=== PATIENT | female | born 1940 | race Caucasian/White ===

== ENCOUNTER 2019-12-22 11:15 | Emergency (ER) | payer MEDICARE, SELFPAY ==
[2019-12-22 11:32] VITALS: BP 87/52; PULSE 98; RESP 20; TEMP 35.9; O2SAT 97
--- NOTE | 2019-12-22 11:46 | ED.GENADULT ---
HPI - General Adult General Chief complaint: Upper Respiratory Infection Stated complaint: SOB Source: patient Mode of arrival: ambulatory Limitations: no limitations History of Present Illness HPI narrative: 79 y/o female. PMH includes: HTN, HLD, DM II. Presents to [facility] clinic today with acute complaints of worsening generalized weakness, dyspnea, loose stool, and 'fatigue' for past 4-5 days. Client notes to feel awful . No chest pain, N/V. Does report loss of appetite and not eating. She reports to have a few family members whom have recently tested positive for Covid 19 virus, but states she herself tested negative 2 weeks ago . She arrives alert and ambulatory, but pale, weak, with noted tachycardia and to be hypotensive. She is a patient of Dr. Moyer Kevin [facility]. Related Data Home Medications Medication Instructions Recorded Confirmed albuterol sulfate [ProAir HFA] INHALATION 12/22/19 fluticasone propionate INTRANASAL 12/22/19 hydrochlorothiazide 12/22/19 lisinopril 12/22/19 metformin mg PO 12/22/19 pioglitazone mg 12/22/19 simvastatin mg 12/22/19 Allergies Allergy/AdvReac Type Severity Reaction Status Date / Time No Known Allergies Allergy Verified 12/22/19 11:30 Review of Systems Review of Systems: Narrative: CONSTITUTIONAL: Denies fever, chills, sweats. EYES: Denies visual changes, redness, discharge. ENT: Denies rhinorrhea, congestion, sore throat, otalgia. CARDIOVASCULAR: Denies chest pain, palpitations, edema. RESPIRATORY: Dyspnea. GASTROINTESTINAL: Loss of appetite. Loose stool. Denies abdominal pain, nausea, vomiting. Denies hematochezia. GENITOURINARY: Denies dysuria, hematuria, abnormal discharge SKIN: Denies rash or itching. MUSCULOSKELETAL: Denies acute back pain, joint pain, or myalgia. NEUROLOGIC: Generalized weakness. Denies numbness, or focal weakness. PSYCHIATRIC: Denies anxiety or depression. Exam Narrative: Exam Narrative: Some components of the exam have not been completed due to need for transfer to acute care facility, higher level of care. GENERAL: This is a frail elderly lady who appears to be ill. HEAD: normocephalic, atraumatic. CARDIOVASCULAR: Tachycardia, without murmurs, gallops, or rubs. RESPIRATORY: LS diminished. GASTROINTESTINAL: Abdomen soft, non-tender, nondistended. No guarding. SKIN: warm, intact with no suspicious lesions or rash, good texture and turgor. NEURO: There were no obvious focal neurologic abnormalities. Generalized weakness. Frail. Course Vital Signs Vital signs: Vital Signs Temperature 35.9 C L 12/22/19 11:32 Pulse Rate 98 12/22/19 11:32 Respiratory Rate 20 12/22/19 11:32 Blood Pressure 87/52 L 12/22/19 11:32 Pulse Oximetry 97 12/22/19 11:32 Temperature 35.9 C L 12/22/19 11:32 Pulse Rate 98 12/22/19 11:32 Respiratory Rate 20 12/22/19 11:32 Blood Pressure 87/52 L 12/22/19 11:32 Pulse Oximetry 97 12/22/19 11:32 Transfer Transfered to: [facility] Transportation: ALS Transfer rationale: This patient requires resources not immediately available at the urgent care. Higher level of care. Accepting physician: Dr. Granger at 1155. Transfer comments: [facility]. Report has been provided to accepting facility and physicians. Staff at accepting facility have been notified of potential PUI for Covid 19, and this patient has been handled with all precautions considering. Medical Decision Making Medical Records Medical records reviewed: Yes I reviewed the patient's medical records. Vital Signs Vital Signs: Vital Signs Temperature 35.9 C L 12/22/19 11:32 Pulse Rate 98 12/22/19 11:32 Respiratory Rate 20 12/22/19 11:32 Blood Pressure 87/52 L 12/22/19 11:32 Pulse Oximetry 97 12/22/19 11:32 Temperature 35.9 C L 12/22/19 11:32 Pulse Rate 98 12/22/19 11:32 Respiratory Rate 20 12/22/19 11:32 Blood Pressure 87/52 L 12/22/19 11:32 Pulse Oximetry
--- NOTE | 2019-12-22 12:23 | PC.NURSE ---
IV inserted x1 attempt without difficulty. Vital signs reassessed. 95/51 91 16 97%. EMS to transfer patient to [facility]. Patient alert and stable for transport.
== END 2019-12-22 12:16 | disposition short-term general hospital (02) ==
PROVIDERS: Emergency Provider Nurse Practitioner Adult Health; PCP Internal Medicine
DX: Z20.828 Contact with and (suspected) exposure to other viral communicable diseases (principal); I95.9 Hypotension, unspecified; R53.1 Weakness; R00.0 Tachycardia, unspecified; R06.00 Dyspnea, unspecified; I10 Essential (primary) hypertension; E78.5 Hyperlipidemia, unspecified; E11.9 Type 2 diabetes mellitus without complications
CPT/HCPCS: 99215; G0463

== ENCOUNTER 2022-02-27 11:21 | Outpatient (CLI) | payer MEDICARE, SELFPAY ==
--- NOTE | ~2022-02-27 | US_ITS ---
EXAMINATION: US carotid duplex BI DATE: 02/27/2022 12:27 INDICATION: Bilateral carotid artery stenosis TECHNIQUE: Grayscale, color Doppler, and pulsed Doppler images of the cervical carotid arteries were obtained. The degree of vessel stenosis is placed in one of the following categories: normal, <50%, 5 0-69%, >=70% but less than near-occlusion, near-occlusion, or total occlusion. Note that percent sten osis relative to normal distal artery lumen diameter is indirectly measured from velocity measurement s as described by Cole, et al. Radiology 2003; 229:340-346. COMPARISON: None. FINDINGS: RIGHT: The right common carotid artery (CCA) peak systolic velocity (PSV) is 94 cm/s. The right internal car otid artery (ICA) PSV is 97 cm/s. The right ICA end-diastolic velocity (EDV) is 15 cm/s. The right IC A/CCA PSV ratio is 1.0. Grayscale and color Doppler images yield an estimate of <50% diameter reducti on from plaque in the ICA. The external carotid artery (ECA) PSV is 106 cm/s. There is antegrade flow in the right vertebral artery. LEFT: The left CCA PSV is 116 cm/s. The left ICA PSV is 83 cm/s. The left ICA EDV is 23 cm/s. The left ICA/ CCA PSV ratio is 0.7. Grayscale and color Doppler images yield an estimate of <50% diameter reduction from plaque in the ICA. The ECA PSV is 83 cm/s. There is antegrade flow in the left vertebral artery . IMPRESSION: 1. <50% stenosis in the right internal carotid artery. 2. <50% stenosis in the left internal carotid artery. Reviewed, dictated and finalized at location A. L MAKING SUPERVISOR
== END 2022-02-27 11:22 | disposition home or self-care (01) ==
PROVIDERS: PCP Family Medicine; Visit Provider Internal Medicine Cardiovascular Disease
DX: I65.23 Occlusion and stenosis of bilateral carotid arteries (principal)
CPT/HCPCS: 93880

== ENCOUNTER 2024-09-19 19:32 | Emergency (ER) | payer MEDICARE, BC, SELFPAY ==
--- NOTE | ~2024-09-19 | XR_ITS ---
EXAM: XR shoulder RT 1V DATE: 09/19/2024 20:41 HISTORY: per ortho request/ [facility] . COMPARISON: Same date at 7:56 PM. FINDINGS/IMPRESSION: Redemonstration of the comminuted right humeral head fracture. A fragment comprising the greater tube rosity remains posteriorly displaced. Alignment unchanged. Normal glenohumeral alignment, with possible mild subluxation. No glenoid fracture. Reviewed, dictated and finalized at location K.
--- NOTE | ~2024-09-19 | XR_ITS ---
EXAM: XR shoulder RT min 2V DATE: 09/19/2024 20:15 HISTORY: fall, pain . COMPARISON: None available. FINDINGS: Limited evaluation with only 2 views. Normal mineralization. Comminuted right humeral head fracture with involvement of the greater tuberosity. The greater tuberosity fragment is displaced pos teriorly by 9 mm. No lytic or blastic lesion. Moderate AC joint and glenohumeral joint degenerative c hange. No erosion or periosteal change. Soft tissues within normal limits. IMPRESSION: Comminuted right humeral head fracture. Reviewed, dictated and finalized at location K.
[2024-09-19 19:31] VITALS: BP 145/90; PULSE 80; RESP 18; TEMP 36.7; O2SAT 100
--- NOTE | 2024-09-19 19:40 | ED_ITS ---
HPI - Fall General Chief Complaint: Fall Stated Complaint: RUE PAIN S/P FALL Time Seen by Provider: 09/19/24 19:35 History of Present Illness HPI Narrative: Patient presents here after she missed reaching for a door knob, slipped and fell down some steps, landing on her right arm. She is reporting pain with trying to move it Related Data Home Medications ?Medication ?Instructions ?Recorded ?Confirmed ?Last Taken ?Type omega 8-uzm-hcb-fish oil 100 cap PO 02/20/22 08/25/24 Unknown History mg-160 mg-1,000 mg capsule (Fish Oil) pioglitazone 15 mg tablet (Actos) 15 mg PO DAILY 02/20/22 08/25/24 Unknown History vitamin B complex (B 1 tablet PO DAILY 02/20/22 08/25/24 Unknown History Complex-Vitamin B12 tablet) atorvastatin 10 mg tablet (Lipitor) 40 mg PO DAILY 08/29/22 08/25/24 Unknown History aspirin 81 mg tablet 81 mg PO DAILY 08/20/23 08/25/24 Unknown History cholecalciferol (vitamin D3) 1,250 1,250 mcg PO WEEKLY 08/20/23 08/25/24 Unknown History mcg (50,000 unit) capsule multivitamin 1 tablet PO DAILY 08/20/23 08/25/24 Unknown History furosemide 20 mg tablet (Lasix) 40 mg PO .PRN 12/24/23 08/25/24 Unknown History semaglutide 1 mg/dose (4 mg/3 mL) mg subcut 04/21/24 08/25/24 Unknown History subcutaneous pen injector (Ozempic) Allergies Allergy/AdvReac Type Severity Reaction Status Date / Time No Known Allergies Allergy Verified 08/25/24 13:46 Review of Systems Review of Systems: All systems reviewed & are unremarkable except as noted in HPI and below PMFSH Past Medical History Medical History Diabetes History of chronic arthritis Family History Family History Father Diabetes mellitus Hypertension Mother Acute leukemia Sibling Diabetes mellitus Heart disease Cerebrovascular accident Social History Social History Smoking status: Former smoker Smoking end date: 02/19/92 Alcohol intake: current Alcohol use details: infrequently Substance use: never Do You Feel Safe in your Home?: Yes Lack of Transportation: No Lack of Food: Never True Current Housing: I Have Housing Concerned About Future Housing: No Difficulty Paying Gas/Electric Bills: No Difficulty Paying for Meds: No Currently Unemployed: No Education: Master's Degree or Higher Difficulty w/ Childcare or Family Care: No Occupation/Education: retired Gender identity (if verbalized by the patient): Female Exam Narrative: EXAMINATION OF ORGAN SYSTEMS/BODY AREAS: Constitutional: Vital signs per nursing GENERAL:[No acute distress, non-toxic appearing.] HEAD: Normal with no signs of head trauma. EYES: EOMI, conjunctiva normal ENT: Hearing grossly intact LUNGS: Nonlabored breathing. HEART: [Regular rate and rhythm] ABD: [Soft], [nontender to palpation] EXT: RUE in sling; some tenderness to humerus; no tenderness to wrist, elbow. Bruising to R 2nd/3rd digits but normal ROM SKIN: Bruises to digits as above NEURO: [Alert and oriented x 3. No gross focal sensory or strength deficits.] PSYCH: Normal affect Course Vital Signs Vital signs: Vital Signs Temperature 98.1 F 09/19/24 19:31 Pulse Rate 80 09/19/24 19:31 Respiratory Rate 18 09/19/24 19:31 Blood Pressure 145/90 H 09/19/24 19:31 Pulse Oximetry 100 09/19/24 19:31 Oxygen Delivery Room Air 09/19/24 19:31 Temperature 98.1 F 09/19/24 19:31 Pulse Rate 80 09/19/24 19:31 Respiratory Rate 18 09/19/24 19:31 Blood Pressure 145/90 H 09/19/24 19:31 Pulse Oximetry 100 09/19/24 19:31 Oxygen Delivery Room Air 09/19/24 19:31 MDM - Fall MDM Narrative Medical decision making narrative: Patient presents here after mechanical fall she did not hit her head, she has no injuries anywhere else and she is ambulating without issue, she is reporting pain to her right upper extremity, on exam she has no tenderness to anywhere else other than her right humerus. Normal strong radial pulse. X-ray unfortunately on my independent interpretation does show a humeral head fracture. Discussed with orthopedics Dr. Dwyer, who requests additional view as well as shoulder immobilizer, will follow up with her in clinic, patient updated, agreeable to plan, pain prescriptions provided. Discharge Plan Discharge Clinical Impression: Humeral fracture Patient Disposition: Home Condition: Stable Instructions: Proximal Humerus Fracture (ED) Additional Instructions: Please follow-up with the orthopedist, keep her arm in the sling, you can take the medications as prescribed for pain, and use ice for the 1st few days. You can always return to the emergency room for any further issues. Patient Language: Tajik Prescriptions: New acetaminophen [Tylenol Extra Strength] 500 mg tablet 1,000 mg PO Q6H PRN (Reason: pain) Qty: 50 0RF methocarbamol 750 mg tablet 750 mg PO TID PRN (Reason: muscle spasm) Qty: 30 0RF oxycodone 5 mg capsule 5 mg PO Q8H PRN (Reason: pain) Qty: 14 0RF No Action pioglitazone [Actos] 15 mg tablet 15 mg PO DAILY Fish Oil 100-160-1,000 mg capsule PO vitamin B complex [B Complex-Vitamin B12] Tablet 1 tablet PO DAILY Ozempic 1 mg/dose (4 mg/3 mL) pen injector subcut aspirin 81 mg tablet 81 mg PO DAILY multivitamin Tablet 1 tablet PO DAILY cholecalciferol (vitamin D3) 1,250 mcg (50,000 unit) capsule 1,250 mcg PO WEEKLY atorvastatin [Lipitor] 10 mg tablet 40 mg PO DAILY furosemide [Lasix] 20 mg tablet 40 mg PO .PRN Follow-up/Referrals: Zoltan Dwyer MD [Physician] - 2 Days Harms,Paul Elias M.D. [Primary Care Provider] -
--- NOTE | 2024-09-19 20:02 | PC.NURSE ---
This RN spoke with Bhargavi FERNANDEZ from [facility] and updated about pt POC
--- OUTSIDE RECORDS SUMMARY | 2024-09-19 20:47 | XMS_ITS | Clinical Summary ---
Author Organization [facility] Address [address] [place] [id number] Phone Care Team Providers Care Hand Tool Filer Name Role Phone Paul Chavez MD Primary Care Provider [phone] Allergies No known active allergies Medications aspirin (ST JOSE FRANCISCO) 81 MG EC tablet 81 mg 0 Active cyanocobalamin (VITAMIN B-12) 1000 MCG tablet Take 1,000 mcg by mouth Active fluticasone (VERAMYST) 27.5 MCG/SPRAY nasal spray Administer 1 spray into affected nostril(s) Active furosemide (LASIX) 20 MG tablet Take 20 mg by mouth 1 Active Icosapent Ethyl 1 g capsule 1 Active Multiple Vitamin (multivitamin) tablet Take 1 tablet by mouth Active [place] 3 1000 MG capsule Take 2 g by mouth daily Active pioglitazone (ACTOS) 45 MG tablet 1 Active Cholecalciferol 50 MCG (2000 UT) capsule Take 2,000 Units by mouth daily 1 Active atorvastatin (LIPITOR) 40 MG tablet 2 Active Dulaglutide (Trulicity) 1.5 MG/0.5ML solution pen-injector Inject 1.5 mg under the skin 2 Active erythromycin (ROMYCIN) 5 MG/GM ophthalmic ointment APPLY A SMALL AMOUNT TO EYE LID THREE TIMES DAILY FOR 10 DAYS STARTING AFTER SURGERY 2 Active Active Problems Problem Noted Date Diagnosed Date Cough 06/19/2021 Overview (10/09/2021): Last Assessment & Plan: Cough for 9 days draggoy sleeps a lot tired no fever no chills no sinus isues Non productive sugar alos high check a cxr and start empirec ztirho for thois Excessive intake of vitamin B12 and vitamin B12 derivative 06/19/2021 Overview (10/09/2021): Last Assessment & Plan: Stop for june and restart July If takes 2500 then go to 1000 a day and if 1000 then restart 500 and Skip sat ad nsund. And recheck And comen inwith dose taking Chronic kidney disease stage 4 08/31/2020 Hyperkalemia 08/31/2020 Vitamin D deficiency 08/31/2020 Obesity 05/04/2020 Overview (04/02/2021): Last Assessment & Plan: Work to keep wt stable to drop Last Assessment & Plan: Work to dorp -wt Generalized edema 02/03/2020 Overview (04/02/2021): Last Assessment & Plan: suporot hose on dfirst in am. Consider referal to edema clinic on return Last Assessment & Plan: suporot hose on dfirst in am. Consider referal to edema clinic on return Hypercalcemia 12/31/2019 Overview (04/02/2021): Last Assessment & Plan: Resolved and montior Last Assessment & Plan: Resolved and montior Orthostatic hypotension 12/31/2019 Overview (04/02/2021): Last Assessment & Plan: Not on much meds but stopoing the lisinopri and off h ctzx already Pushing salts and flulids in general stopoing merformin and victoza and simbvastatin Pain of left hip joint 04/27/2019 Overview (04/02/2021): Last Assessment & Plan: Referral to ortho for eval Postmenopausal state 04/27/2019 Overview (04/02/2021): Check bmd Last Assessment & Plan: Check bmd At moderate risk for fall 10/27/2018 Overview (04/02/2021): Last Assessment & Plan: Urged to get out daily aldn use the carts for stabilitly to bulid up gait and strength Impaired joint position sense 10/27/2018 Overview (04/02/2021): Last Assessment & Plan: Balance worse from this and need to work o balance to prevednt faling. Dyspnea on exertion 01/20/2018 Overview (04/02/2021): Last Assessment & Plan: Patient underwent stress exercise echo that was unremarkable but was sub maximal. I asked the patient to use her treadmill at home and gradually exercise. Asked patient to let me know if she experiences any chest pain. Last Assessment & Plan: Patient underwent stress exercise echo that was unremarkable but was sub maximal. I asked the patient to use her treadmill at home and gradually exercise. Asked patient to let me know if she experiences any chest pain. Palpitations 01/20/2018 Overview (04/02/2021): Last Assessment & Plan: Holter monitor shows supraventricular contractions with no atrial fibrillation. Patient now is asymptomatic. Chronic low back pain 10/07/2017 Overview (04/02/2021): Last Assessment & Plan: Look at trial pt once card workup done Acute back pain with sciatica 01/14/2017 Overview (04/02/2021): Last Assessment & Plan: Some what better but stil issue referal to pt given apparent muslce c.o and worked in past if not then refereral to pain md. Not andidate for stgeroid given high surg/d.,. and nsaid's risk more then worth. otc helps Last Assessment & Plan: Some what better but stil issue referal to pt given apparent muslce c.o and worked in past if not then refereral to pain md. Not andidate for stgeroid given high surg/d.,. and nsaid's risk more then worth. otc helps Acute cystitis without hematuria 09/10/2016 Overview (04/02/2021): Last Assessment & Plan: Urine culture + and will retreat and check urine 2-4 days off antibiotics to confirm clear. Would like to ait for sensitivityi to come back Last Assessment & Plan: Urine culture + and will retreat and check urine 2-4 days off antibiotics to confirm clear. Would like to ait for sensitivityi to come back Type 2 diabetes mellitus 07/04/2013 Overview (04/02/2021): Last Assessment & Plan: ldl at 96 andwant tighter and target 60 On 20 simvastin and will go to 20 atorvasitn and should g et ldl lower an adjust. Your cholesterol in the form of ldl (bad) cholesterol,hdl(good) cholesterol and triglycerides are monitored. The triglycerides respond to reduction/controll of your simple carbs/sugars In such items as sugared soda/sweet tea along with fruit juices(containing natural sugar) even if no added sugar is added. LDL cholesterol is reduced with reducing daily intake of fats and ghada. saturated fats. The monosaturated fats like olive oil are not harmful except in the calories they contained. Whole milk cheese needs to be remembered along with whole milk products And limited. Last Assessment & Plan: ldl at 67 and great and Keep meds sameYour cholesterol in the form of ldl (bad) cholesterol,hdl(good) cholesterol and triglycerides are monitored. The triglycerides respond to reduction/controll of your simple carbs/sugars In such items as sugared soda/sweet tea along with fruit juices(containing natural sugar) even if no added sugar is added. LDL cholesterol is reduced with reducing daily intake of fats and ghada. saturated fats. The monosaturated fats like olive oil are not harmful except in the calories they contained. Whole milk cheese needs to be remembered along with whole milk products And limited.Diabetes management or controll revolves around several core concepts : weight controll,controlling the intake of rapidly absorbed sugars(read simple carbs that get rapidly absorbed such as sweetened tea,sugared soda,fruit juices or portions of fruit over 1/2 cup at a time) as well at the need to increase the sugar burned up through an n increase in your baseline activity.Breads,potatotes(white,yellow,sweet are all the same),most cereals and noodles all breakdown to sugar rapidly. This rapid breakdown or absorption challenges the body into handling this surge of sugar. The more these factors are controlled the more the sugar will be controlled. DMII WO CMP NT ST UNCNTR Last Assessment & Plan: Creat inching down to 2.1 and impoved and keep meds sames. To try to minimize the worsening and possible improvement in the renal function there are several things to try to do. The patient should work to get off of (if on) drugs Like Prilosec/prevacid/protonix/nexium,etc. This does not include zantac/pepcid or Tagement. It ws shown that there is an increased risk of kidney dysfunction if you use Prilosec like meds.The patient should also stay off of regular use of scripted arthritis pills like Celebrex.mobic,naprosyn,etc. The over the counter pills of this nature are Advil/motrin/ibuprofen and aleve/naproxen. Regular use of these over the counter pills, Particularly at high doses and not scattered use of the meds also can harm the kidneys. Last Assessment & Plan: The patient was counseled on a heart-healthy, diabetic-friendly diet, as well as life-style modification. Education provided on the diagnosis and risks of the disease. We will continue to monitor routine labs. Additionally, She was counseled on routine diabetic eye exams, foot exams, and other preventive care. Hypertensive disorder 07/04/2013 Overview (10/09/2021): BENIGN HYPERTENSION Last Assessment & Plan: The bp dropped with wt and not usig lasix and a1c high at 11.9 and higher Switch to trulixity 1.5 and o6ofsfks and then go to 3 next Hypertension, Medical treament revolves around weight control, salt management, and meds when necessary. long as weight loss is necessary and you are able to drop weight we can cont to monitor the blood pressure and not add meds. Once the weight is not changing then it becomes nesessary to add meds to be able to reach the goal bp.Diabetes management or controll revolves around several core concepts : weight controll,controlling the intake of rapidly absorbed sugars(read simple carbs that get rapidly absorbed such as sweetened tea,sugared soda,fruit juices or portions of fruit over 1/2 cup at a time) as well at the need to increase the sugar burned up through an n increase in your baseline activity.Breads,potatotes(white,yellow,sweet are all the same),most cereals and noodles all breakdown to sugar rapidly. This rapid breakdown or absorption challenges the body into handling this surge of sugar. The more these factors are controlled the more the sugar will be controlled. Immunizations Immunization Administration Dates Next Due Influenza LAIV (Nasal) 01/06/2020 Influenza Split 01/15/2011,12/26/2009 Influenza Split High Dose Pr eservative Free IM 01/06/2020,01/19/2019,11/21/2017,11/20,03/14/2015,01/04/2014,01/12/2013 Influenza TIV (IM) 02/26/2012,01/06/2008 Influenza, Injectable, Quadrivalent 12/13/2020 Influenza, Quadrivalent 01/06/2020 Pfizer Sars-cov-2 Vaccination 05/03/2020, 021 Pneumococcal Conjugate 13-Valent 05/10/2014 Pneumococcal Polysaccharide 02/03/2020, 8 Tdap 05/18/2016 Family History Medical History Relation Comments Dementia Brother Diabetes mellitus Brother Diabetes mellitus Father Heart disease Father Hypertension Father Stroke Father Colon cancer Mother Relation Status Comments Brother Father Mother Social History Tobacco Use Types Packs/Day Years Used Date Smoking Tobacco: Former Smokeless Tobacco: Never Alcohol Use Standard Drinks/Week Comments Yes 0 (1 standard drink = 0.6 oz pur e alcohol) social use Comments Unknown Sex and Gender Information Value Date Recorded Sex Assigned at Female 05/29/2021 4:44 PM MDT Legal Sex Female 10:37 AM [facility] Gender Identity Female 05/29/2021 4:44 PM MDT Sexual Orientation Straight 05/29/2021 4: 44 PM MDT Last Filed Vital Signs Vital Sign Reading Time Taken Comments Blood Pressure 136/78 10/09/2021 2:49 PM CDT Pulse - - Temperature 35.8 C (96.4 F) 10/09/2021 2:49 PM CDT Respiratory Rate 18 10/09/2021 2:49 PM CDT Oxygen Saturation - - Inhaled Oxygen Concentration - - Weight 108 kg (237 lb) 10/09/2021 2:49 PM CDT Height 170.2 cm (5' 7) 10/09/2021 2:49 PM CDT Body Mass Index 37.12 10/09/2021 2:49 PM CDT Plan of Treatment Health Maintenance Due Date Last Done Comments COVID-19 Vaccine (2023-2 5 season) 2023 05/03/2020, 04/12/2020 Influenza Vaccine (#1) 2024 , 02/26/2012, 01/15/2011, Additional history exists Pneumococcal PPSV23/PCV13 65 + Years / Low and Medium Risk Completed 02/03/2020, 05/10/2014, 01/06/[address] [facility] [employer] MEDICARE Care Teams Hand Tool Filer Relationship Specialty Start Date End [place] [phone] PCP - General Internal Medicine 10/09/21
--- OUTSIDE RECORDS SUMMARY | 2024-09-19 20:47 | XMS_ITS | Referral Summary ---
Author Organization [facility] Address [address] [place] [id number] Care Team Providers Care Roving Tester Laboratory Name Role Phone Herbert Parker MD Unavailable [phone] Artie Nayak MD Unavailable [phone] Mary Ann Santizo MD Unavailable [phone] Laura Crump MD Unavailable [phone] Paul Chavez MD Primary Care Provider [phone] Tonya Patel MD Unavailable [phone] Encounters Date Type Department Care Team Description 09/10/2024 Orders Only [facility] [address] [address] ProviderRichard MD 08/13/2024 8:44 AM CDT - 08/13/2024 11:59 PM CDT Hospital Encounter [facility] Medical [facility] and Sports Medicine [address] [place] [address] [place] [phone] Discharge Disposition: Discharge to home or self care 08/13/2024 7:34 AM CDT - 08/13/2024 11:59 PM CDT Hospital Encounter [facility] Medical [facility] Orthopedics and Sports Medicine [address] [place] [address] [address], [place] [phone] Discharge Disposition: Discharge to home or self care 08/13/2024 8:00 AM CDT Office Visit [facility] Medical [facility] Orthopedics and Sports Medicine [address] [place] [address] [address] [place] [phone] Emmie López PA Right hip pain (Primary Dx) 07/27/2024 5:00 PM CDT Office Visit [facility] [address] [address] Terri Velez NP Acute cough (Primary Dx) 07/08/2024 Telephone [facility] [address] [facility] [address], [place] [address] Ajay Molina MD from Last 3 Months Allergies No known active allergies Medications lancets misc Check sugar once a day 100 each 11 9 Active blood glucose diagnostic (ONETOUCH ULTRA TEST) strip Check sugar once a day 100 each 9 Active cholecalciferol (VITAMIN D-3) 2000 unit capsule Take 0.5 capsules (1,000 Units total) by mouth daily 1 Active multivitamin capsule Take 1 capsule by mouth daily Active cyanocobalamin (Vitamin B-12) 1,000 mcg tablet Take 1 tablet (1,000 mcg total) by mouth Active fluticasone propionate (FLONASE) 50 mcg/actuation nasal spray Administer 1 spray into each nostril as needed for rhinitis or allergies Active furosemide (LASIX) 40 mg tablet Take 1 tablet (40 mg total) by mouth as needed (swelling) 90 tablet 3 3 Active aspirin 81 mg enteric coated tablet Take 1 tablet (81 mg total) by mouth daily Active icosapent ethyL (VASCEPA) 1 gram capsuleIndications :Type 2 diabetes mellitus with hyperlipidemia (HCC) TAKE 2 CAPSULES TWICE A DAY 360 capsule 3 4 Active semaglutide (OZEMPIC) 1 mg/dose (4 mg/3 mL) pen injector injectionIndicatio ns:type 2 diabetes mellitus Inject 1 mg under the skin every 7 days 9 mL 3 5 Active glipiZIDE (GLUCOTROL) 5 mg tablet Take 1 tablet (5 mg total) by mouth daily 90 tablet 3 5 026 Active pioglitazone (ACTOS) 45 mg tablet TAKE 1 TABLET DAILY 90 tablet 3 5 Active atorvastatin (LIPITOR) 40 mg tablet TAKE 1 TABLET DAILY. 90 tablet 3 5 Active benzonatate (TESSALON) 200 mg capsuleIndications :Acute cough Take 1 capsule (200 mg total) by mouth 3 (three) times a day as needed for cough 30 capsule 5 Active Active Problems Problem Noted Date Diagnosed Date Severe obesity 06/09/2024 Orthostasis 06/09/2024 Contusion of multiple sites of right leg 025 BMI 37.0-37.9, adult 06/09/2024 CKD (chronic kidney disease) stage 4, GFR 15-29 ml/min 12/03/2023 Assessment & Plan (12/03/2023 11:12 AM CDT): No fluid overload. Continue on f/u with Dr. Rosas. Reviewed blood pressure and glycemic control. Colon cancer screening 12/03/2023 Assessment & Plan (12/03/2023 11:12 AM CDT): Patient intrested in cologuard and will folwlo response. BMI 38.0-38.9,adult 12/03/2023 Assessment & Plan (12/03/2023 11:13 AM CDT): Encourag ehalthy food chocies. Down 10 lbs on GLP-1 agonsit and no side effects to the medication regimen. Severe obesity (BMI 35.0-39.9) with comorbidity 12/03/2023 Assessment & Plan (12/03/2023 11:13 AM CDT): As above. Hip osteoarthritis 07/03/2022 Primary osteoarthritis of left hip 05/16/2022 Overview (05/16/2022): Added automatically from request for surgery [id number] Morbid (severe) obesity due to excess calories 0 04/24/2022 Cough 06/19/2021 Assessment & Plan (06/19/2021 11:56 AM CDT): Cough for 9 days draggoy sleeps a lot tired no fever no chills no sinus isues Non productive sugar alos high check a cxr and start empirec ztirho for thois Excessive vitamin B12 intake 06/19/2021 Assessment & Plan (06/19/2021 12:04 PM CDT): Stop for june and restart July If takes 2500 then go to 1000 a day and if 1000 then restart 500 and Skip sat ad nsund. And recheck And comen inwith dose taking Class 2 obesity with body ma ss index (BMI) of 35.0 to 35.9 in adult 05/04/2020 Assessment & Plan (06/19/2021 12:05 PM CDT): Wt drop and; feels from li fe style but a1c higher suggests fro higfh sugar will see Assessment & Plan (04/17/2021 3:13 PM TUBE COREMAKER): Work to drop wt Assessment & Plan (11/07/2020 1:39 PM CDT): Work to dorp -wt Assessment & Plan (07/27/2020 10:36 AM CDT): Drop wt instead of gain Assessment & Plan (05/04/2020 11:52 AM CDT): Work to keep wt stable to drop Generalized edema 02/03/2020 Assessment & Plan (02/03/2020 10:37 AM TUBE COREMAKER): suporot hose on dfirst in am. Consider referal to edema clinic on return Hypercalcemia 12/31/2019 Assessment & Plan (02/03/2020 10:17 AM TUBE COREMAKER): Resolved and montior Assessment & Plan (12/31/2019 3:51 PM TUBE COREMAKER): With adrf on crf the calcium jumped to 13 with sepsis and current hypotenton. Recheck labs soon to see where calc is and renal functoin is. Pain of left hip joint 04/27/2019 Assessment & Plan (04/27/2019 11:49 AM CDT): Referral to ortho for eval Post-menopausal 04/27/2019 Overview (04/27/2019): Check bmd Assessment & Plan (04/27/2019 11:58 AM CDT): Check bmd Controlled type 2 diabetes fly steen with microalbuminuria, without long-term current use of insulin 01/19/2019 Assessment & Plan (06/14/2020 7:57 AM CDT): The patient was counseled on a heart-healthy, diabetic-friendly diet, as well as life-style modification. Education provided on the diagnosis and risks of the disease. We will continue to monitor routine labs. Additionally, She was counseled on routine diabetic eye exams, foot exams, and other preventive care. Assessment & Plan (05/04/2020 11:50 AM CDT): Protein will go up and will monaitor. Assessment & Plan (02/03/2020 10:16 AM TUBE COREMAKER): On meds and needs urine protein rechecked yr'ly Assessment & Plan (09/07/2019 11:35 AM CDT): Urine protein st 50 and stable and cont mes as onTo try to minimize the worsening and possible [...] the meds also can harm the kidneys. Assessment & Plan (04/27/2019 11:52 AM CDT): Urine protein iched up and recheck to see if stable on meds to mo=limit Assessment & Plan (01/19/2019 10:48 AM TUBE COREMAKER): Mild elevation and inching up. On meds and max k so no room to add meds and on lambert alreadly. montior Impaired joint position sense 10/27/2018 Assessment & Plan (10/27/2018 10:31 AM CDT): Balance worse from this and need to work o balance to prevednt faling. At moderate risk for fall 10/27/2018 Assessment & Plan (04/17/2021 3:17 PM TUBE COREMAKER): Mod fall risk Assessment & Plan (02/03/2020 10:19 AM TUBE COREMAKER): Urged to get out daily aldn use the carts for stabilitly to bulid up gait and strength Assessment & Plan (10/27/2018 10:32 AM CDT): Given poor ability to tell position of toes then fall risk higha needs balance program at home doing a program and not cont will lose wht ever you get from it Palpitations 01/20/2018 Assessment & Plan (01/20/2018 8:45 AM TUBE COREMAKER): Holter monitor shows supraventricular contractions with no atrial fibrillation. Patient now is asymptomatic. Dyspnea on exertion 01/20/2018 Assessment & Plan (01/20/2018 8:46 AM TUBE COREMAKER): Patient underwent stress exercise echo that was unremarkable but was sub maximal. I asked the patient to use her treadmill at home and gradually exercise. Asked patient to let me know if she experiences any chest pain. B12 deficiency 11/19/2017 Assessment & Plan (04/17/2021 3:18 PM TUBE COREMAKER): b12 Keep on and check Assessment & Plan (11/07/2020 1:40 PM CDT): b12 def Touch high and see if not drift back down further Assessment & Plan (05/04/2020 11:46 AM CDT): b12 excess and will stop b12 for now and recheck on reutrn and see violette at and come backwith actual dose taking to help adjust dose knowing what she takes Assessment & Plan (02/03/2020 10:14 AM TUBE COREMAKER): Levels nl now and cont as doing and check in 4-6 months Assessment & Plan (09/07/2019 11:37 AM CDT): Check o n return Assessment & Plan (03/18/2018 12:08 PM TUBE COREMAKER): Check b12 on retrurn Assessment & Plan (01/27/2018 11:14 AM TUBE COREMAKER): Check on erturn Assessment & Plan (11/19/2017 10:53 AM CDT): Check on retrurn Type 2 diabetes mellitus with hyperlipidemia Assessment & Plan (12/03/2023 11:12 AM CDT): Stable on atorvastatin and will continue to follow response. No new myalgias/arthalgias. Assessment & Plan (05/28/2023 10:19 AM CDT): Stable on atorvastatin. NO new myalgias/arthralgias identified and will continue to follow along. Thanks. Assessment & Plan (06/19/2021 12:01 PM CDT): ldl at 60 and great edison same Your cholesterol in the form of ldl [...] along with whole milk products And limited. Assessment & Plan (04/17/2021 3:12 PM TUBE COREMAKER): ldl at 97 adnd waant better on atorvasitn 20 and n refill try 40 and see if toerated target 60 and less. a1c 10 and ruben Switch to truicity and see if whenout of vicftoza helps. Your cholesterol in the form of ldl [...] along with whole milk products And limited. Assessment & Plan (11/07/2020 1:37 PM CDT): ldl at 67 and great and Keep [...] the more the sugar will be controlled. Assessment & Plan (07/27/2020 10:35 AM CDT): ldl at 68 and good and no chavs in medsYour cholesterol in the form of ldl (bad) [...] along with whole milk products And limited. Assessment & Plan (02/03/2020 10:28 AM TUBE COREMAKER): ldl at 96 andwant tighter and target [...] along with whole milk products And limited. Assessment & Plan (01/06/2020 3:57 PM TUBE COREMAKER): Restart victoza and actos and hold off on metformin and wathc t please. Recheck screens in 3-4 wks and see after. Your cholesterol in the form of ldl [...] the more the sugar will be controlled. Assessment & Plan (09/07/2019 11:34 AM CDT): ldl 42 and great and no changfes And a1c up to 7.[address] Or dorpDiabetes management or controll revolves around several core [...] controlled the more the sugar will be controlled.Your cholesterol in the form of ldl (bad) [...] along with whole milk products And limited. Assessment & Plan (04/27/2019 11:52 AM CDT): ldl at 77 and great and no chagds. Your cholesterol in the form of ldl [...] along with whole milk products And limited. Assessment & Plan (03/02/2019 4:47 PM TUBE COREMAKER): Cont m3ds and labs on return Assessment & Plan (01/19/2019 10:49 AM TUBE COREMAKER): ldl at 55 and great So no meds changesYour cholesterol in the form of ldl (bad) [...] along with whole milk products And limited. Assessment & Plan (10/27/2018 10:37 AM CDT): ldl at 60 and good at presentYour cholesterol in the form of ldl (bad) [...] along with whole milk products And limited. Assessment & Plan (08/11/2018 11:33 AM CDT): ldl at 59 and great. No ochangsYour cholesterol in the form of ldl (bad) [...] along with whole milk products And limited. Assessment & Plan (03/18/2018 12:04 PM TUBE COREMAKER): Checkliipds on returnYour cholesterol in the form of ldl (bad) [...] along with whole milk products And limited. Assessment & Plan (01/27/2018 11:11 AM TUBE COREMAKER): ldl at 103 and up but misses pills. At least take the week before test. a1c up to 9.4 and to high. Go to a full dose of the metformin of 1000 bid and if fbs not nl then re start low dose glim ipirideYour cholesterol in the form of ldl (bad) [...] the more the sugar will be controlled. Assessment & Plan (01/20/2018 8:47 AM TUBE COREMAKER): Continue Zocor. Assessment & Plan (11/21/2017 12:51 PM CDT): ldl dropped to 81 withthet changes in statin and stopponghte fibrolate. Will stay off of it and recheck labs on return. Fasting high but await return and a1c check and work from thereYour cholesterol in the form of ldl (bad) [...] the more the sugar will be controlled. Assessment & Plan (10/07/2017 11:12 AM CDT): ldl at 100 and up from past. Would lproppose to stop the fenofibrate given scurrent rec 's. Increase the simvastin to 20 from 10 and recheck results. Your cholesterol in the form of ldl [...] along with whole milk products And limited. Chronic right-sided low back pain without sciati ca 10/07/2017 Assessment & Plan (10/07/2017 11:17 AM CDT): Look at trial pt once card workup done Medicare annual wellness visit, subsequent 10/07 Assessment & Plan (04/17/2021 3:22 PM TUBE COREMAKER): Mod fall risk depreosn screen neg and scores 0. Cognitive screen nl. Mackenzie;s dr fish and dr nielsonow kidneymdmam up ot date and out aged colon had flu and covid booster. Consider shinges shot Had shingles shot twice. Assessment & Plan (02/03/2020 10:32 AM TUBE COREMAKER): Mod fall risk deprieson initial screen + with one but indicatea and reviews and not issue Cog screen nl colon up to date fal flu shot had both p shots and update the 23. chingles shot series suggest and covid when out. Eye up to date. Assessment & Plan (10/27/2018 10:41 AM CDT): depresion screen +but declines meds or intervention. Mod fall risk and needs balance program offered to refer trae and probally should But prefers not. Relates to call them and go b ack. Colon in dec p shots up to date. Fall flu shot Assessment & Plan (10/07/2017 11:26 AM CDT): Consider shingles shot. Had first at age 37 and lst a yr ago. Treated.discused shingles b=vaccies for the future. Get fall flu shots. Has had p shots series. Bilateral carotid artery disease 01/14/2017 Assessment & Plan (05/28/2023 10:19 AM CDT): Surveillance with Dr. Downey. Assessment & Plan (02/03/2020 10:13 AM TUBE COREMAKER): Aggressive rx to supporess and rescrneen in 1 yr with current mild to mod abn buildup asa and tight risk contorll Assessment & Plan (09/07/2019 11:36 AM CDT): Stay on asa and tight risk controll repeat carotid on reutrn Assessment & Plan (04/27/2019 11:50 AM CDT): cotn risk ctonll Assessment & Plan (01/19/2019 10:49 AM TUBE COREMAKER): 01/06 and mild /mod and risk controll. asa Assessment & Plan (10/27/2018 10:38 AM CDT): Tighten risk and repeat as several yrs Assessment & Plan (08/11/2018 11:37 AM CDT): Stable and re scan every 2yrs Assessment & Plan (10/07/2017 11:13 AM CDT): On riask controll and rescan Every 1-2 yrs. Stay on asa Assessment & Plan (06/03/2017 10:50 AM CDT): Stay on asa and check Every 2 yrs Assessment & Plan (01/14/2017 11:51 AM TUBE COREMAKER): Check every coupld yrs. And stay on meds Acute right-sided low back pain with right-sided sciatica 01/14/2017 Assessment & Plan (03/02/2019 4:44 PM TUBE COREMAKER): Some what better but stil issue referal to pt given apparent muslce c.o and worked in past if not then refereral to pain md. Not andidate for stgeroid given high surg/d.,. and nsaid's risk more then worth. otc helps Assessment & Plan (01/19/2019 10:53 AM TUBE COREMAKER): actue flair and pain referral to pt as states can self pt. Call for pt referral if needs referral. Assessment & Plan (01/14/2017 11:47 AM TUBE COREMAKER): Awakes with and then goes away. As long as miold and not interfering with lfe would not act on. Type 2 diabetes mellitus wit h stage 4 chronic kidney disease, without long-term current use of insulin 07/04/2013 Overview (05/25/2016): DMII WO CMP NT ST UNCNTR Assessment & Plan (12/03/2023 11:11 AM CDT): Secondary prevention with excellent glycemic control and will follow response. NO hypoglycmeic episdoes and will montiro ersponse. Assessment & Plan (05/28/2023 10:18 AM CDT): Stable on CKD stage 4 and f/u with nephrology and will montior repsonse. NO change at the present time. No s/s of fluid overload. Reivewed hypoglycmeic risks associated with GAMBOA in patient over 65 but contraindication to other therapy reviewed and patient has tolerated well. Assessment & Plan (04/17/2021 3:24 PM TUBE COREMAKER): seing renal For kideny issues and working on Get niddm better Assessment & Plan (11/07/2020 1:38 PM CDT): Creat inching down to 2.1 and impoved [...] the meds also can harm the kidneys. Assessment & Plan (07/27/2020 10:34 AM CDT): Creat was 2.75 and now 2.03 and getting better and ruben see if cont to get better.To try to minimize the worsening and possible [...] the meds also can harm the kidneys. Assessment & Plan (05/04/2020 11:45 AM CDT): Cr cl 15 on lst check a1c 6.8 and g reat. Stop the lisinopirl 2.5 and hctz. Lasix over drop bp with lightheaded. See's renal et week and this mihgt help. To try to minimize the worsening and [...] the meds also can harm the kidneys. Diabetes management or controll revolves around several core [...] the more the sugar will be controlled. Assessment & Plan (02/03/2020 10:16 AM TUBE COREMAKER): Last gfr stable obver 2 yrs and Serum creat up and down a little want repreat gfr 24 hr uirento cofirm where at. To try to minimize the worsening and [...] the meds also can harm the kidneys. Assessment & Plan (09/07/2019 11:33 AM CDT): crf screens about osame and a1c inchyed up to 7.5 and need to stp or dorp check 24 hr urien onreutnr and dorp the a1c To try to minimize the worsening and [...] the meds also can harm the kidneys. Diabetes management or controll revolves around several core [...] the more the sugar will be controlled. Assessment & Plan (04/27/2019 11:51 AM CDT): Repeat 24 hr urien ion return as flavio a yr. To try to minimize the worsening and [...] the meds also can harm the kidneys. Assessment & Plan (03/02/2019 4:47 PM TUBE COREMAKER): Check labs on retugrn Assessment & Plan (01/19/2019 10:46 AM TUBE COREMAKER): Repeat after 4.29 24 hr urineTo try to minimize the worsening and possible [...] the meds also can harm the kidneys. Assessment & Plan (10/27/2018 10:34 AM CDT): Screens stable and check 24 hr urien yrly.To try to minimize the worsening and possible [...] the meds also can harm the kidneys. Assessment & Plan (08/11/2018 11:32 AM CDT): a1c at 7.9 and Better then past and needs to cont to d rop. gfr stable at 59 and sstable but still there. Diabetes management or controll revolves around several core [...] controlled the more the sugar will be controlled.To try to minimize the worsening and possible [...] the meds also can harm the kidneys. Assessment & Plan (03/18/2018 12:03 PM TUBE COREMAKER): Screens crdat dropoing and near nl. Check 24 hr urine and ccheck on levels of fuonction . Fasting dropped to 137 and 100 beteter. . stopthe amaryl. To try to minimize the worsening and [...] the meds also can harm the kidneys. Diabetes management or controll revolves around several core [...] the more the sugar will be controlled. Assessment & Plan (11/19/2017 10:51 AM CDT): Tolerating new meds and off the [id number]. With fasting higher. If a1c high then re adjsut meds. For now leaev alone. Check a1 c on rturn, blood leverls on creat dropped and will recheckDiabetes management or controll revolves around several core [...] controlled the more the sugar will be controlled.To try to minimize the worsening and possible [...] the meds also can harm the kidneys. Assessment & Plan (10/17/2017 12:36 PM CDT): Adjustments were made to her diabetes medications last visit and she has labs pending next month Assessment & Plan (10/07/2017 11:09 AM CDT): a1c up from combo effects. The metformin was to cut in 12 as well as the glymipride. And ruben ask to stopt he glimipiride now as relates ow sugar but ruben go to 1.2 on the victoza to start and then ordeed and consder going to the 1.8 next and check asugars., gfr stable at 5.7 over tlhe last 3yrs and a level 3 but high on scale. Not on high risk meds and cont to monitor and control risk and check yr'lyDiabetes management or controll revolves around several core [...] controlled the more the sugar will be controlled.To try to minimize the worsening and possible [...] the meds also can harm the kidneys. Assessment & Plan (06/03/2017 10:47 AM CDT): Creat coming up and this might reflect some worsening of renal function. Will check a 24 hr urine on return. Cut the metformin down to 2 pills and drop the glimipiride to 1mg a day. If sugars rise then Up tphe victoza to 16 again from 12. Diabetes management or controll revolves around several core [...] controlled the more the sugar will be controlled.To try to minimize the worsening and possible [...] the meds also can harm the kidneys. Assessment & Plan (01/14/2017 11:52 AM TUBE COREMAKER): Cut the glimipiride to one pill a dya of the 2 mg a day. yr'ly 24 hr urien to check on kidney funtcionTo try to minimize the worsening and possible [...] the meds also can harm the kidneys. Diabetes management or controll revolves around several core [...] the more the sugar will be controlled. Assessment & Plan (09/10/2016 10:52 AM CDT): Low sugars I middle of night will drop back on the glimipiride to 6 mg a day instead of 4. Still want hte a1c at low 7's but not with the reactions. The 24 hr u rine dropped a little to 58 and was 6 6. Will recheck yr'ly. Diabetes management or controll revolves around several core [...] the more the sugar will be controlled. Hypertension associated with diabetes 07/04/2013 Overview (05/25/2016): BENIGN HYPERTENSION Assessment & Plan (12/03/2023 11:11 AM CDT): COntinue surveillance with fursoemide and will montiro erpsonse. Assessment & Plan (05/28/2023 10:19 AM CDT): Stable per CKD targets and will follow response. Assessment & Plan (06/19/2021 12:00 PM CDT): The bp dropped with wt and not usig lasix and a1c high at 11.9 and higher Switch to trulixity 1.5 and [id number] and then go to 3 next Hypertension, [...] the more the sugar will be controlled. Assessment & Plan (04/17/2021 3:08 PM TUBE COREMAKER): bp ongoing great and a1c Up will cheange to trcarley When out of vicza and ruben call back to send inas will send now if sdent in the bp good and keep sameHypertension, Medical treament revolves around weight control, salt [...] the more the sugar will be controlled. Assessment & Plan (11/07/2020 1:38 PM CDT): The bp good and keep meds sameHypertension, Medical treament revolves around weight control, salt management, and meds when necessary. long as weight loss is necessary and you are able to drop weight we can cont to monitor the blood pressure and not add meds. Once the weight is not changing then it becomes nesessary to add meds to be able to reach the goal bp. Assessment & Plan (07/27/2020 10:33 AM CDT): The bp good and a1c up to 7 .3 and still good and stay here or better and work diet Hypertension, Medical treament revolves around weight control, [...] the more the sugar will be controlled. Assessment & Plan (06/14/2020 7:57 AM CDT): Recommend DASH diet, heart-healthy lifestyle, exercise. Discussed the risks of hypertension. Assessment & Plan (05/04/2020 11:48 AM CDT): The bp on low side and stop the lisinopirl and Hctz. And off lasix nowHypertension, Medical treament revolves around weight control, salt management, and meds when necessary. long as weight loss is necessary and you are able to drop weight we can cont to monitor the blood pressure and not add meds. Once the weight is not changing then it becomes nesessary to add meds to be able to reach the goal bp. Assessment & Plan (02/03/2020 10:14 AM TUBE COREMAKER): bp gtreat and no chagse in meds and last a1c 7.5 and acceptable but lpast higher and work to keep down and check on return along with urine vor proteinHypertension, Medical treament revolves around weight control, salt [...] the more the sugar will be controlled. Assessment & Plan (09/07/2019 11:34 AM CDT): bp good and came up on meds reductin and n o chagfs fcor nowHypertension, Medical treament revolves around weight control, salt management, and meds when necessary. long as weight loss is necessary and you are able to drop weight we can cont to monitor the blood pressure and not add meds. Once the weight is not changing then it becomes nesessary to add meds to be able to reach the goal bp. Assessment & Plan (04/27/2019 11:50 AM CDT): The bp good and no chages and a1c at 7.2 and good contelll no chanes and cont mdedzx Hypertension, Medical treament revolves around weight control, [...] the more the sugar will be controlled. Assessment & Plan (03/02/2019 4:47 PM TUBE COREMAKER): bp good and labs n rturn Assessment & Plan (01/19/2019 10:46 AM TUBE COREMAKER): The bp good and a1c down to 8.1 and needs to drop more. luz added medsbut diet would work Assessment & Plan (10/27/2018 10:35 AM CDT): bp gooa dn no changves but sugar high and at 8.6 and nneds to tighten ruben go to 45 on actos and see if can't get down. Not on glimipiride and will avoud if able for low sugar risk Hypertension, Medical treament revolves around weight control, [...] the more the sugar will be controlled. Assessment & Plan (08/11/2018 11:34 AM CDT): The bp good and o changes Assessment & Plan (03/18/2018 12:04 PM TUBE COREMAKER): Controled with meds. delicnes to drop the hctz frompuffy stand point Assessment & Plan (01/27/2018 11:14 AM TUBE COREMAKER): bp controlled and watch and take medsHypertension, Medical treament revolves around weight control, salt management, and meds when necessary. long as weight loss is necessary and you are able to drop weight we can cont to monitor the blood pressure and not add meds. Once the weight is not changing then it becomes nesessary to add meds to be able to reach the goal bp. Assessment & Plan (01/20/2018 8:47 AM TUBE COREMAKER): Blood pressure is controlled. Continue current treatment. Assessment & Plan (10/17/2017 12:33 PM CDT): Recommend DASH diet, heart healthy lifestyle, exercise. Discussed the risks of hypertension. Assessment & Plan (10/07/2017 11:10 AM CDT): bp good and no changdes. . Change meds for sugar as aboveHypertension, Medical treament revolves around weight control, salt management, and meds when necessary. long as weight loss is necessary and you are able to drop weight we can cont to monitor the blood pressure and not add meds. Once the weight is not changing then it becomes nesessary to add meds to be able to reach the goal bp. Assessment & Plan (06/03/2017 10:49 AM CDT): bp good and no chanvges. Hypertension, Medical treament revolves around weight control, salt management, and meds when necessary. long as weight loss is necessary and you are able to drop weight we can cont to monitor the blood pressure and not add meds. Once the weight is not changing then it becomes nesessary to add meds to be able to reach the goal bp. Assessment & Plan (01/14/2017 11:51 AM TUBE COREMAKER): The bp good and no ch anges. a1c drooped to 6.7 and gtreat. No changes for bp. The sugar low enough to reduce medsHypertension, Medical treament revolves around weight control, salt [...] the more the sugar will be controlled. Assessment & Plan (09/10/2016 10:52 AM CDT): The bp good and no changesHypertension, Medical treament revolves around weight control, salt management, and meds when necessary. long as weight loss is necessary and you are able to drop weight we can cont to monitor the blood pressure and not add meds. Once the weight is not changing then it becomes nesessary to add meds to be able to reach the goal bp. Resolved Problems Problem Noted Date Diagnosed Date Resolved Date Morbid (severe) obesity due to excess calories 04/17/2021 06/19/2021 Orthostatic hypotension 12/31/201901/19 Assessment & Plan (12/31/2019 3:47 PM TUBE COREMAKER): Not on much meds but stopoing the lisinopri and off h ctzx already Pushing salts and flulids in general stopoing merformin and victoza and simbvastatin Acute pyelonephritis 12/31/2019 020 Assessment & Plan (12/31/2019 3:50 PM TUBE COREMAKER): E coli sepsis with resitant bacteria just finished omnicef and will need to check urine in several days to confirm if clear or not. Hospital discharge follow-up 12/25/2019 12/25/2019 Left groin pain 01/19/2019 04/27/2019 Assessment & Plan (01/19/2019 10:54 AM TUBE COREMAKER): l groin and let pt play with and if cont then xray to [facility] and see if hip needs work on. Discussed dr patel as referal if ongoing Medicare annual wellness visit, initial 10/27/2018 02/03/2020 Assessment & Plan (10/27/2018 10:50 AM CDT): Refer for 01/19 and later BMI 37.0-37.9, adult 10/07/2017 021 Assessment & Plan (09/07/2019 11:37 AM CDT): Work to drop a few Assessment & Plan (04/27/2019 11:53 AM CDT): Work to kep stable Assessment & Plan (01/19/2019 10:50 AM TUBE COREMAKER): Stable and needs to drop wt. Assessment & Plan (10/27/2018 10:37 AM CDT): Work to drop some Assessment & Plan (03/18/2018 12:04 PM TUBE COREMAKER): Being over weight is dealt with by restriction of you daily calories and increasing your calorie needs with increases in your work load/exercises or just increases in daily activity. There are different programs for weight loss and they all are felt to be relatively equally effective and you can make a choice as to what works for you. Angina effort 10/07/2017 01/20/2018 Assessment & Plan (11/21/2017 12:52 PM CDT): Stress test neg for what was achieved but not adequate. referrd to card given High risk and has an upcoming apptn to eval her and Go from there. Stay on asa and report issues . Assessment & Plan (10/07/2017 11:29 AM CDT): ekg with 1st degreee block but otherwise nl. s etup a enhance s tress test to further eval the Rhythm and evedence of cad. If not able to walk then can do a Chemical but Bel ieve can walk to p eak and stop from it andnot from ortho reasons o as. No added meds till results back. Look at 2 days holter if neg. At low risk for fall 10/07/2017 019 Assessment & Plan (10/07/2017 11:21 AM CDT): Low risk and cont to walk BMI 34.0-34.9,adult 06/03/2017 10/28/19 19 Assessment & Plan (08/11/2018 11:37 AM CDT): Dropped a touch andno changes Assessment & Plan (06/03/2017 10:55 AM CDT): Being over weight is dealt with by restriction of you daily calories and increasing your calorie needs with increases in your work load/exercises or just increases in daily activity. There are different programs for weight loss and they all are felt to be relatively equally effective and you can make a choice as to what works for you. 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 And now bllodi urine and wbc suggested from renal source. Given a urine severe yrs ago that had this surggest long standing. Referral opton to renal for There opion. No nsalis no ppi's . Assessment & Plan (12/31/2019 3:45 PM TUBE COREMAKER): Stopping meds and lisinopril vcictoza metformin . Labs Drawn cmp and cbc Type 1 diabetes mellitus wit h stage 3 chronic kidney disease 01/14/2017 01/14/2017 Mixed hyperlipidemia due to type 2 diabetes mellitus 01/14/2017 06/03/2017 Assessment & Plan (01/14/2017 11:52 AM TUBE COREMAKER): ldl at 76 and gtreat. No changes. Your cholesterol in the form of ldl [...] along with whole milk products And limited. Acute cystitis without hematuria 09/10/2016 07/21/2021 Assessment & Plan (02/03/2020 10:20 AM TUBE COREMAKER): Urine culture + and will retreat and check urine 2-4 days off antibiotics to confirm clear. Would like to ait for sensitivityi to come back Assessment & Plan (09/12/2016 12:32 PM CDT): Culture postivie and the macrobid on was noted to be effective. So shold work to cllear the infection. Assessment & Plan (09/10/2016 10:58 AM CDT): Will check urine on way out to confirm if infected Acute cerebrovascular insufficiency 07/04/2013 01/14/2017 Overview (05/25/2016): AC CEREBROVASC INSUF NOS Hyperlipidemia 07/04/2013 10/07/2017 Overview (05/25/2016): HYPERLIPIDEMIA NEC/NOS Assessment & Plan (06/03/2017 10:50 AM CDT): ldl at 72 and goodl. No changesYour cholesterol in the form of ldl (bad) [...] along with whole milk products And limited. Assessment & Plan (09/10/2016 10:53 AM CDT): ldl will recheck and hdl at 40 and weight off will come up.Your cholesterol in the form of ldl (bad) [...] along with whole milk products And limited. Immunizations Immunization Administration Dates Next Due Influenza LAIV (Nasal) 11/27/2021(Deferr ed: Patient Refused),01/06/2020 Influenza, Quad, Adjuvantate d, Intramuscular 12/13/2020 Influenza, Quadrivalent, Hig h Dose, Preservative Free, Intrr 01/06/2020 Influenza, Quadrivalent, Spl it, Intramuscular 12/13/2020 Influenza, Split 01/15/2011,12/26/2009 Influenza, Trivalent, High D ose, Split, Preservative Free, Intramuscular 01/19/2019,11/21/2017,11/21/2015,03/14,01/04/2014,01/12/2013 Influenza, Trivalent, IM (MDV) 02/26/2012,2007 Influenza, Unspecified 12/03/2023(Deferr ed: Patient Refused),02/18/2023(Deferred: Patient Refused),01/01/2023,11/20/2022(Deferre d: Patient Refused),05/31/2022(Deferred: Patient Refused),02/18/2022(Deferred: Patient Refused),10/19/2021(Deferred: Patient Refused),11/07/2020(Deferred: Allergy),12/31/2019(Deferred: Patient ill today) Pfizer SARS-CoV-2 Monovalent Vaccination (12+ Yrs) PURPLE 01/01/2023,05/03/2020,04/12/2020 Pneumococcal Conjugate PCV 13 05/10/2014 Pneumococcal Polysaccharide PPV23 02/03/2020, Tdap 05/18/2016 Social History Tobacco Use Types Packs/Day Years Used Date Smoking Tobacco: Former Cigarettes Q uit: 07/21/1989 Smokeless Tobacco: Never Tobacco Cessation:Counseling Given: Not Answered Alcohol Use Standard Drinks/Week Comments Yes 0 (1 standard drink = 0.6 oz pur e alcohol) Do not drink weekly OASIS D0700: Social Isolation Answer Da te Recorded Frequency of experiencing loneliness or isolatio n Never 07/23/2022 OASIS A1250: Transportation Answer Date Recorded Lack of Transportation (Medical) No 07/23/2022 Lack of Transportation (Non-Medical) No 07/23/2022 Patient Unable or Declines to Respond No 07/23/2022 OASIS B1300: Health Literacy Answer Ramon e Recorded Frequency of needing help to read materials from doctor or pharmacy Never 07/23/2022 Social Connection and Isolat ion Panel [NHANES] Answer Date Recorded In a typical week, how many times do you talk on the phone with family, friends, or neighbors? More than three times a week 07/04/2022 How often do you get togethe r with friends or relatives? More than three times a week 07/04/2022 How often do you attend chur ch or mormonism services? Never 07/04/2022 Do you belong to any clubs o r organizations such as confucianist groups, unions, fraternal or athletic groups, or school groups? No 07/04/2022 How often do you attend meet ings of the clubs or organizations you belong to? Never 07/04/2022 Are you , , di vorced, , never , or living with a partner? 07/04/2022 AUDIT-C Answer Date Recorded Frequency of Alcohol Consumption Not on file 06/27/2022 Q2: How many drinks containi ng alcohol do you have on a typical day when you are drinking? Patient does not drink Frequency of Binge Drinking Not on file 06/18 Overall Financial Resource Strain (CARDIA) Answe r Date Recorded How hard is it for you to pa y for the very basics like food, housing, medical care, and heating? Not hard at all 07/04/2022 PHQ-2 Answer Date Recorded PHQ-2 Total Score (If total score is 3 or more points, staff should administer the PHQ-9) 0 06/09/2024 Hunger Vital Sign Answer Date Recorded Within the past 12 months, y ou worried that your food would run out before you got the money to buy more. Never true 07/05/19 23 Within the past 12 months, t he food you bought just didn't last and you didn't have money to get more. Never true 07/04/2022 PRAPARE - Transportation Answer Date Re corded In the past 12 months, has l ack of transportation kept you from medical appointments or from getting medications? No 06/18 In the past 12 months, has l ack of transportation kept you from meetings, work, or from getting things needed for daily living? No 07/04/2022 Housing Stability Vital Sign Answer Ramon e Recorded In the last 12 months, was t here a time when you were not able to pay the mortgage or rent on time? No 07/04/2022 In the last 12 months, how many places have you lived? 1 07/04/2022 In the last 12 months, was t here a time when you did not have a steady place to sleep or slept in a usp (including now)? No 07/04/2022 Personal Safety Answer Date Recorded Have you ever been in or are you currently in a harmful physical or emotional relationship or is someone making you feel afraid or unsafe? Denies 07/02/2022 Comments No Sex and Gender Information Value Date Recorded Sex Assigned at Not on file Legal Sex Female 11:51 PM TUBE COREMAKER Gender Identity Female 04/19/2019 1:05 PM TUBE COREMAKER Sexual Orientation Straight 04/19/2019 1 :05 PM TUBE COREMAKER Last Filed Vital Signs Vital Sign Reading Time Taken Comments Blood Pressure 126/58 08/13/2024 8:14 AM CDT Pulse 71 08/13/2024 8:14 AM CDT Temperature 36.6 C (97.9 F) 07/27/2024 4:58 PM CDT Respiratory Rate 22 07/27/2024 4:58 PM CDT Oxygen Saturation 97% 07/27/2024 4:58 PM CDT Inhaled Oxygen Concentration - - Weight 110.2 kg (243 lb) 08/13/2024 8:14 AM CDT Height 167.6 cm (5' 6) 08/13/2024 8:14 AM CDT Body Mass Index 39.22 08/13/2024 8:14 AM CDT Plan of Treatment Not on file Medical Devices Implanted Type Area Senior Applications Analyst Device Identifier Shelf Expiration Date Model / Serial / Lot [employer] [place] 52mm Sector Hip Shell Acetabular Gription Sterile Latex Free [id number] - [id number] Implanted:Qty: 1 on 07/02/2022 by Tonya Patel MD at [facility] Left: Hip [employer] 05/18/2032 [id number] / / [id number] [employer] [place] 52mm 36mm Hip Neutral Liner Acetabular Altrx Sterile Latex Free [id number] - [id number] Implanted:Qty: 1 on 07/02/2022 by Tonya Patel MD at [facility] Left: Hip [employer] 04/18/2027 [id number] / / [id number] [employer] [place] 6.5mm 35mm Acetabular Cancellous Screw Bone Sterile 1217-35-500 - [id number] Implanted:Qty: 1 on 07/02/2022 by Tonya Patel MD at [facility] Left: Hip [employer] 02/18/2032 [id number] / / [id number] [employer] Actis Collar Hip 4 High Offset Stem Femoral [id number] - [id number] Implanted:Qty: 1 on 07/02/2022 by Tonya Patel MD at [facility] Left: Hip [employer] 09/18/2031 [id number] / / [id number] [employer] Articul/Kt 36mm Cementless Hip +5mm 01/31 Taper Head Femoral Latex Free [id number] - [id number] Implanted:Qty: 1 on 07/02/2022 by Tonya Patel MD at [facility] Left: Hip [employer] 05/19/2027 [id number] / / [id number] Procedures Procedure Name Priority Date/Time Associated Diagnosis Comments DIABETES EYE EXAM Routine 09/03/2024 5:00 PM CDT XR SPINE LUMBAR 2 OR 3 VIEWS Schedule Routine, Read Routine (OP Routine) 08/13/2024 8:49 AM CDT Right hip pain XR HIP RIGHT 2 OR 3 VIEWS Schedule Routine, Read Routine (OP Routine) 08/13/2024 8:13 AM CDT Right hip pain COMPREHENSIVE METABOLIC PANEL Routine 06/01/2024 11:25 AM CDT HEMOGLOBIN A1C Routine 06/01/2024 11:25 AM CDT LIPID PANEL Routine 06/01/2024 11:25 AM CDT ALBUMIN CREATININE RATIO, URINE Routine 06/01/2024 11:25 AM CDT DEXA AXIAL SKELETON BONE DENSITY 1 OR MORE SITES Schedule Routine, Read Routine (OP Routine) 11/09/2022 11:03 AM CDT Asymptomatic menopausal state SCREENING MAMMOGRAM BILATERAL W MAXIME Schedule Routine, Read Routine (OP Routine) 09/01/2021 3:08 PM CDT Screening mammogram, encounter for DIABETES FOOT EXAM Routine 05/18/2016 from Last 3 Months or Most Recently Relevant to Health Maintenance Results * DIABETES EYE EXAM (09/03/2024 5:00 PM CDT) Historical Provider HEALTH MAINTENANCE Edited Result - Final * XR Spine Lumbar 2 or 3 Views (08/13/2024 8:49 AM CDT) Anatomical Region Laterality Modality Spine N/A Digital Radiogra phy Narrative 08/13/2024 9:25 AM CDT Radiographs taken of the lumbar spine today reveal severe degenerative changes with subchondral sclerosis, osteophyte formation, and diminished disc and foraminal space. us Emmie GALVEZ IMG XR PROCEDURES Fin al Result * XR Hip Right 2 or 3 Views (08/13/2024 8:13 AM CDT) Anatomical Region Laterality Modality Lower Extremities, Hip, Pelvis Right D igital Radiography Narrative 08/13/2024 8:19 AM CDT Radiographs taken of the right hip today reveal mild to moderate degenerative changes with subchondral sclerosis, osteophyte formation, and maintained joint space. Emmie GALVEZ IMG XR PROCEDURES Fin al Result * (ABNORMAL) Albumin Creatinine Ratio, Urine (06/01/2024 11:25 AM CDT) Creatinine, ur 56 20 - 275 mg/dL [facility] Microalbumin, ur 3.9 See Note: mg/dL [facility] Comment: Reference Range: Reference Range Not established Microalbumin/creat ratio 70(H) <30 mg/g creat [facility] Comment: The ADA defines abnormalities in albumin excretion as follows: Albuminuria Category Result (mg/g creatinine) Normal to Mildly increased <30 Moderately increased 30-299 Severely increased > OR = 300 The ADA recommends that at least two of three specimens collected within a 3-6 month period be abnormal before considering a patient to be within a diagnostic category. 06/01/2024 11:2 5 AM CDT 06/01/2024 11:27 AM CDT Narrative [facility] - 06/02/2024 7:17 AM CDT FASTING:YES FASTING: YES Paul Chavez MD LAB URINE ORDERABLES Babs l Result [facility] [address] [address] * (ABNORMAL) Hemoglobin A1c (06/01/2024 11:25 AM CDT) Hgb A1C 6.5(H) <5.7 % of total Hgb [facility] Comment: For someone without known diabetes, a hemoglobin A1c value of 6.5% or greater indicates that they may have diabetes and this should be confirmed with a follow-up test. For someone with known diabetes, a value <7% indicates that their diabetes is well controlled and a value greater than or equal to 7% indicates suboptimal control. A1c targets should be individualized based on duration of diabetes, age, comorbid conditions, and other considerations. Currently, no consensus exists regarding use of hemoglobin A1c for diagnosis of diabetes for children. 06/01/2024 11:2 5 AM CDT 06/01/2024 11:27 AM CDT Narrative [facility] - 06/02/2024 7:17 AM CDT FASTING:YES FASTING: YES us Paul Chavez MD LAB BLOOD ORDERABLES Babs pritchard Result [facility] [address] [place] [address] * (ABNORMAL) Lipid panel (06/01/2024 11:25 AM CDT) [facility] Cholesterol 147 <200 mg/dL [facility] HDL 34(L) > OR = 50 mg/dL [facility] Triglycerides 213(H) <150 mg/dL [facility] Comment: If a non-fasting specimen was collected, consider repeat triglyceride testing on a fasting specimen if clinically indicated. Kingston et al. J. of Clin. Lipidol. 2015;9:129-169. LDL 82 mg/dL (calc) [facility] Comment: Reference range: <100 Desirable range <100 mg/dL for primary prevention; <70 mg/dL for patients with CHD or diabetic patients with > or = 2 CHD risk factors. LDL-C is now calculated using the Fabio-Maria Fernanda calculation, which is a validated novel method providing better accuracy than the Friedewald equation in the estimation of LDL-C. Fabio RUIZ et al. SHARRI. 2013;310(19): 9279-8683 (http://education.Grouply.[employer]/faq/WUZ978) Chol/HDL ratio 4.3 <5.0 (calc) [facility] Non-HDL, (LDL+VLDL) 113 <130 mg/dL (calc) [facility] basilio Nielsen Comment: For patients with diabetes plus 1 major ASCVD risk factor, treating to a non-HDL-C goal of <100 mg/dL (LDL-C of <70 mg/dL) is considered a therapeutic option. 06/01/2024 11:2 5 AM CDT 06/01/2024 11:27 AM CDT Narrative [facility] - 06/02/2024 7:17 AM CDT FASTING:YES FASTING: YES us Paul Chavez MD LAB BLOOD ORDERABLES Babs l Result TE [facility] [address] [place] [address] * (ABNORMAL) Comprehensive metabolic panel (06/01/2024 11:25 AM CDT) Glucose 135(H) 65 - 99 mg/dL [facility] Nielsen Comment: Fasting reference interval For someone without known diabetes, a glucose value >125 mg/dL indicates that they may have diabetes and this should be confirmed with a follow-up test. BUN 52(H) 7 - 25 mg/dL [facility]Cloud basilio Nielsen Creatinine 2.53(H) 0.60 - 0.95 mg/dL [facility] eGFR 19(L) > OR = 60 mL/min/1.7 3m2 [facility] BUN/creat ratio 21 6 - 22 (calc) [facility] Sodium 137 135 - 146 mmol/L [facility] Potassium, pl 4.9 3.5 - 5.3 mmol/L [facility] [place] Chloride 103 98 - 110 mmol/L [facility] CO2 24 20 - 32 mmol/L [facility] Calcium 9.6 8.6 - 10.4 mg/dL [facility] Protein, sr 6.8 6.1 - 8.1 g/dL [facility] Albumin 4.1 3.6 - 5.1 g/dL [facility] GLOBULIN 2.7 1.9 - 3.7 g/dL (calc) [facility] Alb/glob ratio 1.5 1.0 - 2.5 (calc) [facility] Bilirubin, total 0.5 0.2 - 1.2 mg/dL [facility] Alk phos 73 37 - 153 U/L [facility] AST 23 10 - 35 U/L [facility] ALT (SGPT) 21 6 - 29 U/L [facility] 06/01/2024 11:2 5 AM CDT 06/01/2024 11:27 AM CDT Narrative [facility] - 06/02/2024 7:17 AM CDT FASTING:YES FASTING: YES us Paul Chavez MD LAB BLOOD ORDERABLES Babs l Result TE [facility]IO-IVT GroupSt [facility] [address] [place] [address] * Dexa Axial Skeleton Bone Density 1 Or 2 Site (11/09/2022 11:03 AM CDT) Anatomical Region Laterality Modality Body N/A Other 11/09/2022 11:5 8 PM CDT Narrative 11/09/2022 11:59 PM CDT EXAM DESCRIPTION: DEXA AXIAL SKELETON BONE DENSITY 1 OR MORE SITES REASON FOR STUDY: 81 y/o year old F with given history of: Asymptomatic menopausal state Screening Hx of left hip replacement about 4 months ago Senior Applications Analyst/Model: [employer] SL (S/N [id number]) CLINICAL INFORMATION: Current height: 67 inches Maximum height: 67 inches Weight: 229 pounds Risk factors: Postmenopausal COMPARISON: 01/18/2020 FINDINGS: AP LUMBAR SPINE L1-L4: Total BMD is 1.475 g/cm2 T-score is 3.9 Dissimilar scan types or analysis methods precludes assessment for calculating a significant change. Right HIP: Total BMD is 1.105 g/cm2 T-score is 1.3 Femoral neck BMD is 0.886 g/cm2 T-score is 0.3 FRAX: FRAX not reported due to T-scores of hip, femoral neck and/or spine being at or above -1.0 (Normal). IMPRESSION: Normal bone mass. REFERENCE: Bone mineral density: Normal (T-score above or = -1.0) Low bone mass (T-score between -1.0 and -2.5) replaces the previously used term osteopenia Osteoporosis (T-score = or below -2.5) Medical evaluation for secondary causes of low bone mineral density may be appropriate. FRAX is a World Health Organization validated fracture risk assessment tool that calculates a person's 10 year probability of a major osteoporosis related fracture and hip fracture. According to the National Osteoporosis Foundation guidelines, postmenopausal women and men age 50 or older with low bone mass and a 10 year probability of a major osteoporosis related fracture = or greater than 20% or a 10 year probability of a hip fracture = or greater than 3% should be considered for treatment. For further information, including treatment recommendations, please refer to the 2019 ISCD Official Positions (http://www.iscd.org) and the NOF's Clinician's Guide to Prevention and Treatment of Osteoporosis (http://www.nof.org/professionals/clinical-guidelines) THIS IS AN ELECTRONICALLY VERIFIED FINAL REPORT 11/09/2022 11:59 PM - Electronically signed by Herbert Boyd M.D. MF: [email or web address] Report ID: [id number] Reading Location: [place] [address] Procedure Note Herbert Boyd MD - 11/10/2022 EXAM DESCRIPTION: DEXA AXIAL SKELETON BONE DENSITY 1 OR MORE SITES REASON FOR STUDY: 81 y/o year old F with given history of:Asymptomatic menopausal state Screening Hx of left hip replacement about 4 months ago Senior Applications Analyst/Model: [email or web address] (S/[id number]) CLINICAL INFORMATION: Current height: 67 inches Maximum height: 67 inches Weight: 229 pounds Risk factors: Postmenopausal COMPARISON: 01/18/2020 FINDINGS: AP LUMBAR SPINE L1-L4: Total BMD is 1.475 g/cm2 T-score is 3.9 Dissimilar scan types or analysis methods precludes assessment for calculating a significant change. Right HIP: Total BMD is 1.105 g/cm2 T-score is 1.3 Femoral neck BMD is 0.886 g/cm2 T-score is 0.3 FRAX: FRAX not reported due to T-scores of hip, femoral neck and/or spine beingat or above -1.0 (Normal). IMPRESSION: Normal bone mass. REFERENCE: Bone mineral density: Normal (T-score above or = -1.0) Low bone mass (T-score between -1.0 and -2.5) replaces thepreviously used term osteopenia Osteoporosis (T-score = or below -2.5) Medical evaluation for secondary causes of low bone mineral density may be appropriate. FRAX is a World Health Organization validated fracture risk assessmenttool that calculates a person's 10 year probability of a major osteoporosisrelated fracture and hip fracture. According to the National OsteoporosisFoundation guidelines, postmenopausal women and men age 50 or older with low bonemass and a 10 year probability of a major osteoporosis related fracture = or greater than 20% or a 10 year probability of a hip fracture = or greaterthan 3% should be considered for treatment. For further information, including treatment recommendations, please referto the 2019 ISCD Official Positions (http://www.iscd.org) and the NOF's Clinician's Guide to Prevention and Treatment of Osteoporosis (http://www.nof.org/professionals/clinical-guidelines) THIS IS AN ELECTRONICALLY VERIFIED FINAL REPORT 11/09/2022 11:59 PM - Electronically signed by Herbert Boyd M.D. MF: [email or web address] Report ID: [id number] Reading Location: [place] [address] Paul Chavez MD IM DXA PROCEDURES Final Result * Screening Mammogram Bilateral W Maxime (09/01/2021 3:08 PM CDT) Anatomical Region Laterality Modality Breast Bilateral Mammography 09/01/2021 5:21 PM CDT Impressions 09/01/2021 5:21 PM CDT There is no mammographic evidence of malignancy. A 1 year screening mammogram is recommended. BI-RADS: 1 - Negative. The patient has been or will be contacted. The patient will be entered into a reminder system with a target due date of 1 year for her next mammogram. Electronically signed by: Sha Jauregui M.D. Narrative 09/01/2021 5:21 PM CDT EXAMINATION: SCREENING MAMMOGRAM BILATERAL W MAXIME ORDERING HEALTHCARE PROVIDER: TONYA LEONARD HISTORY: Routine screening mammography. COMPARISON: 07/25/2020, 07/28/2018, 07/08/2017, 07/02/2016, 06/27/2015, 05/31/2014 TECHNIQUE: CC and MLO views of the bilateral breasts were obtained with digital technique using breast tomosynthesis with C view. Computer aided detection was utilized. FINDINGS: DENSITY: The tissue of the bilateral breasts is heterogeneously dense, which may obscure small masses. BREASTS: There are no suspicious masses, suspicious calcifications, or other suspicious findings in either breast. There has been no suspicious interval change. Tonya Leonard MD IMG MAMMO PROCEDURE S Final Result * DIABETES FOOT EXAM (05/18/2016) Diabetic Foot Exam Unknown Historical Provider MD HEALTH MAINTENANCE Final Result from Last 3 Months or Most Recently Relevant to Health Maintenance Insurance MEDICARE [facility] MEDICARE MEDICARE MEDICARE [facility] MEDICARE BLUE CROSS MEDICARE SUPPLEMENT MEDICARE [facility] Advance Directives For more information, please contact: [phone] * Full Code (Latest Code Status on File) Date Activated Date Inactivated Comments 07/02/2022 12:15 PM 07/04/2022 6:41 PM * Full Code Date Activated Date Inactivated Comments 01/23/2019 9:40 AM 01/23/2019 4:32 PM * Full Code Date Activated Date Inactivated Comments 01/23/2019 9:40 AM 01/23/2019 9:40 AM Care Teams Roving Tester Laboratory Relationship Specialty Start Date End Date Paul Chavez MD [address] [place] [address] PCP - General Family Medicine 08/09/21 Herbert Parker MD [address] [place] [address] Referring Physician Ophthalmology 04/17/21 Artie Nayak MD [address] [facility] [address] SHE Feliz [facility] [address] [place] [address] Consulting Physician Obstetrics and Gynecology 04/17/21 Mary Ann Santizo MD [address] [place] [address] Referring Physician Dermatology 04/17/21 Laura Crump MD [facility] [facility] [address] [address] Consulting Physician Interventional Cardiology 04/17/21 Tonya Patel MD [address] [facility] [address] [place] [address] Surgeon Orthopedic Surgery 07/03/22
--- OUTSIDE RECORDS SUMMARY | 2024-09-19 20:47 | XMS_ITS | Encounter Summary ---
Author Organization [facility] Address [address] [place] [address] Care Team Providers Care Ensemble Member Name Role Phone Paul Chavez MD Primary Care Provider [phone] Encounter Details Date Type Department Care Team (Late st Contact Info) Description 05/26/[address] [facility] Physical Therapy 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
--- OUTSIDE RECORDS SUMMARY | 2024-09-19 20:47 | XMS_ITS | Continuity of Care Document ---
Author Organization [facility] Address [address] [place] [address] Phone Care Team Providers Care Line Worker Name Role Phone Karrie Osborne Unavailable Unavailable Advance Directives Directive Yes / No Effective Date File Name No Information Encounters Encounter Description Practice Location Reason(s) For Visit Diagnoses Date Provider Providers Copied on Encounter [facility], [id number] [place] [address] [address], [place], [place], [id number], [place] tel:[phone] [place] No Information [address] [place] Yoon. [address] [facility] [address] [facility] , [address], [place], [address], [place]. tel:[phone] Family History Family Member Type Diagnosis Age At Onset No Information Payers Payer name Insurance type Covered alliance party ID Authoriza tion(s) General [employer] Commercial CI [id number] Social History Type Description Quantity Date Captured Comments Sex Female Smoking Status No Information Chief Complaint And Reason For Visit No Information Reason For Referral Reason For Referral No Information History Of Present Illness Encounter Date Complaint History Of Prese nt Illness No Information Functional Status Date Functional Assessmen t No Information Instructions Date Instruction Additional Infor mation No Information Assessments Type Assessment Date No Information Patient Care Teams Name Effective Dates (start - stop) Status Members No Information
--- OUTSIDE RECORDS SUMMARY | 2024-09-19 20:47 | XMS_ITS | Clinical Summary ---
Author Organization [facility] Address [address] [place] [address] Care Team Providers Care Architect Naval Name Role Phone Param Leonard MD Primary Care Provi pearl Source Comments [facility],non-owned Affiliates and Associated Physician Practices is amultiple site organization consisting of ambulatory clinics and hospital sitesin [place], [place], [place] and [place]. This disclosure is being madepursuant to the Care Everywhere program and may not contain all information available regarding this patient. Last updated 17.[facility] Allergies No known active allergies Medications * Be aware that medications may not be up to date on this document. Alwaysverify current medications with the patient. METFORMIN HCL PO Active Liraglutide (VICTOZA SC) Active FENOFIBRATE MICRONIZED PO Active SIMVASTATIN PO Activ e LISINOPRIL PO Active HYDROCHLOROTHIA ZIDE PO Active Salicylic Acid (COMPOUND W) 17 % gelIndications: common wart apply 1-2 drops onto affected area, then cover with occlusive bandage for 12-24 hours Reasons: common wart 1.25 g 7 Active Active Problems No known active problems Social History Tobacco Use Types Packs/Day Years Used Date Smoking Tobacco: Former Comments No Sex and Gender Information Value Date Recorded Sex Assigned at Not on file Legal Sex Female 12:38 PM CDT Gender Identity Not on file Sexual Orientation Not on file Last Filed Vital Signs Vital Sign Reading Time Taken Comments Blood Pressure 115/52 08/31/2016 6:20 PM CDT Pulse 99 08/31/2016 6:20 PM CDT Temperature 36.9 C (98.4 F) 08/31/2016 6:20 PM CDT Respiratory Rate 16 08/31/2016 6:20 PM CDT Oxygen Saturation 97% 08/31/2016 6:20 PM CDT Inhaled Oxygen Concentration - - Weight 95.3 kg (210 lb) 06/24/2016 10:29 AM CDT Height 170.2 cm (5' 7) 06/24/2016 10:29 AM CDT Body Mass Index 32.89 06/24/2016 10:29 AM CDT Plan of Treatment Health Maintenance Due Date Last Done Comments BONE DENSITY TESTING 1942 DTAP/TDAP/TD VACCINES (1 - Tdap) 1961 PNEUMOCOCCAL VACCINE 50+ (1 of 1 - PCV) 1992 ZOSTER VACCINE (1 of 2) 1992 Respiratory Syncytial Virus (RSV) Vaccine Pt: or over 60 yrs (1 - 1-dose 75+ series) 2017 COVID-19 VACCINE (1 - season) 2023 DEPRESSION SCREENING 02/19/2024 INFLUENZA VACCINE (#1) 2024 6, 03/14/2015, 01/04/2014, Additional history exists HEPATITIS B VACCINE Aged Out No longe r eligible based on patient's age to complete this topic HIB VACCINE Aged Out No longer eligi ble based on patient's age to complete this topic HPV VACCINE Aged Out No longer eligi ble based on patient's age to complete this topic MENINGOCOCCAL (Group B) VACCINE SHARED DECISION-MAKING Aged Out No longer eligible based on patient's age to complete this topic MENINGOCOCCAL GROUPS A/C/Y/W VACCINE Aged Out No longer eligible based on patient's age to complete this topic Insurance MEDICARE Member Subscriber Plan / Payer (Ef fective 2007-Present) Name:Salma Goode Member ID:[id number] Relation to Subscriber:Self Name:Salma Goode Subscriber ID:[id number] Payer ID:Not on file Group ID:Not on file Type:Medicare Address: [place] [phone] ANTH MEDICARE Care Teams Architect Naval Relationship Specialty Start Date End Date Param Leonard MD PCP - General Internal Medicine 06/24/16
--- OUTSIDE RECORDS SUMMARY | 2024-09-19 20:47 | XMS_ITS | Encounter Summary ---
Author Organization [facility] Address [address] [place] [address] Phone Care Team Providers Care Insurance Counsel Name Role Phone Param Leonard MD Primary Care Provi pearl Marybel Perez Unavailable [phone] Herbert Parker MD Unavailable [phone] Artie Nayak MD Unavailable [phone] Mary Ann Santizo MD Unavailable [phone] Laura Crump MD Unavailable [phone] Paul Chavez MD Primary Care Provider [phone] Param Vargas MD Unavailable [phone] Encounter Details Date Type Department Care Team (Late st Contact Info) Description 05/20/2017 Orders Only [facility] ProviderRichard MD [address] [place] [address] Social History Tobacco Use Types Packs/Day Years Used Date Smoking Tobacco: Former Smokeless Tobacco: Former Alcohol Use Standard Drinks/Week Comments Yes 0 (1 standard drink = 0.6 oz pur e alcohol) Comments Unknown Sex and Gender Information Value Date Recorded Sex Assigned at Not on file Legal Sex Female 11:51 PM HYDROMETER TESTER Gender Identity Female 04/19/2019 1:05 PM HYDROMETER TESTER Sexual Orientation Straight 04/19/2019 1: 05 PM HYDROMETER TESTER documented as of this encounter Plan of Treatment Not on file documented as of this encounter Procedures Procedure Name Priority Date/Time Associated Diagnosis Comments DISCHARGE LABORATORY CUMULATIVE REPORT 05/20/2017 12:00 AM CDT documented in this encounter Results * DISCHARGE LABORATORY CUMULATIVE REPORT (05/20/2017 12:00 AM CDT) Narrative 05/20/2017 12:00 AM CDT Ordered by an unspecified provider. us Historical Provider LAB BLOOD ORDERABLES Babs l Result documented in this encounter Visit Diagnoses Not on filedocumented in this encounter Additional Health Concerns Infection Onset Date Last Indicated Resolved Time COVID: Suspected 12/10/2019 12/10/2019 12/11/2019 8:45 PM CDT Respiratory Infection (JENNIFER), contact + droplet Comment:Automatically added due to negative COVID-19 result. 12/11/2019 12/11/2019 12/22/2019 3:5 6 PM HYDROMETER TESTER COVID: Suspected 01/14/2024 01/14/2024 01/14/2024 7:06 PM HYDROMETER TESTER documented as of this encounter Care Teams Insurance Counsel Relationship Specialty Start Date End Date Param Leonard MD PCP - General 05/18/16 08/08/21 Paul Chavez MD [address] [place] [address] PCP - General Family Medicine 08/09/21 Marybel Perez [address] [place] [address] [address] [place] [address] ACO Care Business Instructor 12/23/19 12/23/19 Herbert Parker MD [address] [place] [address] Referring Physician Ophthalmology 04/17/21 Artie Nayak MD [address] [place] [address] [address] Fel[address] [address] Consulting Physician Obstetrics and Gynecology 04/17/21 Mary Ann Santizo MD [address] [place] [id number] Referring Physician Dermatology 04/17/21 Laura Crump MD [address] [place] [address] Consulting Physician Interventional Cardiology 04/17/21 Param Vargas MD [address] [facility] [address] [place] [id number] Surgeon Orthopedic Surgery 07/03/22 documented as of this encounter
--- OUTSIDE RECORDS SUMMARY | 2024-09-19 20:47 | XMS_ITS | Encounter Summary ---
Author Organization [facility] Address [address] [place] [address] Care Team Providers Care House Mover Helper Name Role Phone Param Leonard MD Primary Care Provi pearl Herbert Parker MD Unavailable [phone] Artie Nayak MD Unavailable [phone] Mary Ann Santizo MD Unavailable [phone] Laura Crump MD Unavailable [phone] Paul Chavez MD Primary Care Provider [phone] Param Vargas MD Unavailable [phone] Encounter Details Date Type Department Care Team (Late st Contact Info) Description 01/15/2020 Telephone [facility] [address] [place] [address] Nela Mazariegos, RT Social History Tobacco Use Types Packs/Day Years Used Date Smoking Tobacco: Former Cigarettes Q uit: 07/21/1989 Smokeless Tobacco: Former Alcohol Use Standard Drinks/Week Comments Yes 0 (1 standard drink = 0.6 oz pur e alcohol) Do not drink weekly PHQ-2 Answer Date Recorded PHQ-2 Score 0 12/17/2019 Comments No Sex and Gender Information Value Date Recorded Sex Assigned at Not on file Legal Sex Female 11:51 PM APPRENTICESHIP REPRESENTATIVE Gender Identity Female 04/19/2019 1:05 PM APPRENTICESHIP REPRESENTATIVE Sexual Orientation Straight 04/19/2019 1: 05 PM APPRENTICESHIP REPRESENTATIVE documented as of this encounter Plan of Treatment Not on file documented as of this encounter Visit Diagnoses Not on filedocumented in this encounter Additional Health Concerns Infection Onset Date Last Indicated Resolved Time COVID: Suspected 01/14/2024 01/14/2024 01/14/2024 7:06 PM APPRENTICESHIP REPRESENTATIVE documented as of this encounter Care Teams House Mover Helper Relationship Specialty Start Date End Date Param Leonard MD PCP - General 05/18/16 08/08/21 Paul Chavez MD [address] [place] [address] PCP - General Family Medicine 08/09/21 Herbert Parker MD [address] [place] [address] Referring Physician Ophthalmology 04/17/21 Artie Nayak MD [address] [facility] [address] [facility] [address] [place] [address] Consulting Physician Obstetrics and Gynecology 04/17/21 Mary Ann Santizo MD [address] [place] [address] Referring Physician Dermatology 04/17/21 Laura Crump MD [address] [facility] [address] [place] [address] Consulting Physician Interventional Cardiology 04/17/21 Param Varags MD [address] [facility] [address] [place] [address] Surgeon Orthopedic Surgery 07/03/22 documented as of this encounter
--- OUTSIDE RECORDS SUMMARY | 2024-09-19 20:47 | XMS_ITS | Clinical Summary ---
Author Organization [facility] Address [address] [place] [address] Care Team Providers Care Health And Social Care Teacher Name Role Phone Paul Chavez MD Primary Care Provider [phone] Social History Tobacco Use Types Packs/Day Years Used Date Smoking Tobacco: Never Assessed Comments Unknown Sex and Gender Information Value Date Recorded Sex Assigned at Female 03/19/2024 1:22 PM BEE PRODUCER Legal Sex Female 10:37 AM CDT Gender Identity Not on file Sexual Orientation Not on file Plan of Treatment Health Maintenance Due Date Last Done Comments Zoster Vaccines (1 of 2) 1992 Annual Medicare Wellness Visit 11/15/2007 RSV Immunization or 60+ Years (1 - 1-dose 75+ series) 2017 COVID-19 Vaccine ( season) 2023 01/01/2023, 12/14/2021, 12/26/2020, Additional history exists DTaP, Tdap and Td Vaccines (2 - Td or Tdap) 05/18/2026 05/18/2016 Pneumococcal Vaccine: 50+ Years Completed 02/03/2020, 05/10/2014, 01/06/2008 Dexa Scan (General) Completed 11/09/2022, 11/09/2022, 01/18/2020 Meningococcal B Vaccine Aged Out No l onger eligible based on patient's age to complete this topic Meningococcal Vaccine Aged Out No robert nalini eligible based on patient's age to complete this topic RSV Immunizations Under 20 Months Aged Out No longer eligible based on patient's age to complete this topic Insurance MEDICARE [facility] Care Teams Health And Social Care Teacher Relationship Specialty Start Date End Date Paul [place] [address] PCP - General INTERNAL MEDICINE 10/15/23
--- OUTSIDE RECORDS SUMMARY | 2024-09-19 20:47 | XMS_ITS | Clinical Summary ---
Author Organization [facility] Address [address] [place] [address] Care Team Providers Care Supervisor Microfilm Duplicating Unit Name Role Phone Herbert Parker MD Unavailable [phone] Artie Nayak MD Unavailable [phone] Mary Ann Santizo MD Unavailable [phone] Laura Crump MD Unavailable [phone] Paul Chavez MD Primary Care Provider [phone] Tonya Patel MD Unavailable [phone] Allergies No known active allergies Medications lancets misc Check sugar once a day 100 each 9 Active blood glucose diagnostic (ONETOUCH ULTRA [...] (05/16/2022): Added automatically from request for surgery [id number] Morbid (severe) obesity due to excess calories [...] see Assessment & Plan (04/17/2021 3:13 PM MANAGER TELEMARKETING): Work to drop wt Assessment & Plan (11/07/2020 1:39 PM CDT): Work to dorp -wt Assessment & Plan (07/27/2020 10:36 AM CDT): Drop wt instead of gain Assessment & Plan (05/04/2020 11:52 AM CDT): Work to keep wt stable to drop Generalized edema 02/03/2020 Assessment & Plan (02/03/2020 10:37 AM MANAGER TELEMARKETING): suporot hose on dfirst in am. Consider referal to edema clinic on return Hypercalcemia 12/31/2019 Assessment & Plan (02/03/2020 10:17 AM MANAGER TELEMARKETING): Resolved and montior Assessment & Plan (12/31/2019 3:51 PM MANAGER TELEMARKETING): With adrf on crf the calcium jumped to 13 with sepsis and current hypotenton. Recheck labs soon to see where calc is and renal functoin is. 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 Assessment & Plan (02/03/2020 10:16 AM MANAGER TELEMARKETING): On meds and needs urine protein rechecked [...] mo=limit Assessment & Plan (01/19/2019 10:48 AM MANAGER TELEMARKETING): Mild elevation and inching up. On meds and max k so no room to add meds and on lambert alreadly. montior Impaired joint position sense 10/27/2018 Assessment & Plan (10/27/2018 10:31 AM CDT): Balance worse from this and need to work o balance to prevednt faling. At moderate risk for fall 10/27/2018 Assessment & Plan (04/17/2021 3:17 PM MANAGER TELEMARKETING): Mod fall risk Assessment & Plan (02/03/2020 10:19 AM MANAGER TELEMARKETING): Urged to get out daily aldn use the carts for stabilitly to bulid up gait and strength Assessment & Plan (10/27/2018 10:32 AM CDT): Given poor ability to tell position of toes then fall risk higha needs balance program at home doing a program and not cont will lose wht ever you get from it Palpitations 01/20/2018 Assessment & Plan (01/20/2018 8:45 AM MANAGER TELEMARKETING): Holter monitor shows supraventricular contractions with no atrial fibrillation. Patient now is asymptomatic. Dyspnea on exertion 01/20/2018 Assessment & Plan (01/20/2018 8:46 AM MANAGER TELEMARKETING): Patient underwent stress exercise echo that was unremarkable but was sub maximal. I asked the patient to use her treadmill at home and gradually exercise. Asked patient to let me know if she experiences any chest pain. B12 deficiency 11/19/2017 Assessment & Plan (04/17/2021 3:18 PM MANAGER TELEMARKETING): b12 Keep on and check Assessment & Plan (11/07/2020 1:40 PM CDT): b12 def Touch high and see if not drift back down further Assessment & Plan (05/04/2020 11:46 AM CDT): b12 excess and will stop b12 for now and recheck on reutrn and see whwere at and come backwith actual dose taking to help adjust dose knowing what she takes Assessment & Plan (02/03/2020 10:14 AM MANAGER TELEMARKETING): Levels nl now and cont as doing and check in 4-6 months Assessment & Plan (09/07/2019 11:37 AM CDT): Check o n return Assessment & Plan (03/18/2018 12:08 PM MANAGER TELEMARKETING): Check b12 on retrurn Assessment & Plan (01/27/2018 11:14 AM MANAGER TELEMARKETING): Check on erturn Assessment & Plan (11/19/2017 [...] limited. Assessment & Plan (04/17/2021 3:12 PM MANAGER TELEMARKETING): ldl at 97 adnd waant better on [...] limited. Assessment & Plan (02/03/2020 10:28 AM MANAGER TELEMARKETING): ldl at 96 andwant tighter and target [...] limited. Assessment & Plan (01/06/2020 3:57 PM MANAGER TELEMARKETING): Restart victoza and actos and hold off [...] limited. Assessment & Plan (03/02/2019 4:47 PM MANAGER TELEMARKETING): Cont m3ds and labs on return Assessment & Plan (01/19/2019 10:49 AM MANAGER TELEMARKETING): ldl at 55 and great So no [...] limited. Assessment & Plan (03/18/2018 12:04 PM MANAGER TELEMARKETING): Checkliipds on returnYour cholesterol in the form [...] limited. Assessment & Plan (01/27/2018 11:11 AM MANAGER TELEMARKETING): ldl at 103 and up but misses [...] controlled. Assessment & Plan (01/20/2018 8:47 AM MANAGER TELEMARKETING): Continue Zocor. Assessment & Plan (11/21/2017 12:51 [...] 10/07 Assessment & Plan (04/17/2021 3:22 PM MANAGER TELEMARKETING): Mod fall risk depreosn screen neg and scores 0. Cognitive screen nl. Mackenzie;s dr fish and unknow kidneymdmam up ot date and out aged colon had flu and covid booster. Consider shinges shot Had shingles shot twice. Assessment & Plan (02/03/2020 10:32 AM MANAGER TELEMARKETING): Mod fall risk deprieson initial screen + [...] Downey. Assessment & Plan (02/03/2020 10:13 AM MANAGER TELEMARKETING): Aggressive rx to supporess and rescrneen in 1 yr with current mild to mod abn buildup asa and tight risk contorll Assessment & Plan (09/07/2019 11:36 AM CDT): Stay on asa and tight risk controll repeat carotid on reutrn Assessment & Plan (04/27/2019 11:50 AM CDT): cotn risk ctonll Assessment & Plan (01/19/2019 10:49 AM MANAGER TELEMARKETING): 01/06 and mild /mod and risk controll. [...] yrs Assessment & Plan (01/14/2017 11:51 AM MANAGER TELEMARKETING): Check every coupld yrs. And stay on meds Acute right-sided low back pain with right-sided sciatica 01/14/2017 Assessment & Plan (03/02/2019 4:44 PM MANAGER TELEMARKETING): Some what better but stil issue referal to pt given apparent muslce c.o and worked in past if not then refereral to pain md. Not andidate for stgeroid given high surg/d.,. and nsaid's risk more then worth. otc helps Assessment & Plan (01/19/2019 10:53 AM MANAGER TELEMARKETING): actue flair and pain referral to pt as states can self pt. Call for pt referral if needs referral. Assessment & Plan (01/14/2017 11:47 AM MANAGER TELEMARKETING): Awakes with and then goes away. As [...] well. Assessment & Plan (04/17/2021 3:24 PM MANAGER TELEMARKETING): seing renal For kideny issues and working [...] controlled. Assessment & Plan (02/03/2020 10:16 AM MANAGER TELEMARKETING): Last gfr stable obver 2 yrs and [...] kidneys. Assessment & Plan (03/02/2019 4:47 PM MANAGER TELEMARKETING): Check labs on retugrn Assessment & Plan (01/19/2019 10:46 AM MANAGER TELEMARKETING): Repeat after 4.29 24 hr urineTo try [...] kidneys. Assessment & Plan (03/18/2018 12:03 PM MANAGER TELEMARKETING): Screens crdat dropoing and near nl. Check [...] CDT): Tolerating new meds and off the [id number]. With fasting higher. If a1c high then [...] kidneys. Assessment & Plan (01/14/2017 11:52 AM MANAGER TELEMARKETING): Cut the glimipiride to one pill a [...] and higher Switch to trulixity 1.5 and a0sddryx and then go to 3 next Hypertension, [...] controlled. Assessment & Plan (04/17/2021 3:08 PM MANAGER TELEMARKETING): bp ongoing great and [facility]c [facility] call back to send inas [...] bp. Assessment & Plan (02/03/2020 10:14 AM MANAGER TELEMARKETING): bp gtreat and no chagse in meds [...] controlled. Assessment & Plan (03/02/2019 4:47 PM MANAGER TELEMARKETING): bp good and labs n rturn Assessment & Plan (01/19/2019 10:46 AM MANAGER TELEMARKETING): The bp good and a1c down to [...] changes Assessment & Plan (03/18/2018 12:04 PM MANAGER TELEMARKETING): Controled with meds. delicnes to drop the hctz frompuffy stand point Assessment & Plan (01/27/2018 11:14 AM MANAGER TELEMARKETING): bp controlled and watch and take medsHypertension, [...] bp. Assessment & Plan (01/20/2018 8:47 AM MANAGER TELEMARKETING): Blood pressure is controlled. Continue current treatment. [...] bp. Assessment & Plan (01/14/2017 11:51 AM MANAGER TELEMARKETING): The bp good and no ch anges. [...] 12/31/201901/19 Assessment & Plan (12/31/2019 3:47 PM MANAGER TELEMARKETING): Not on much meds but stopoing the lisinopri and off h ctzx already Pushing salts and flulids in general stopoing merformin and victoza and simbvastatin Acute pyelonephritis 12/31/2019 020 Assessment & Plan (12/31/2019 3:50 PM MANAGER TELEMARKETING): E coli sepsis with resitant bacteria just finished omnicef and will need to check urine in several days to confirm if clear or not. Hospital discharge follow-up 12/25/2019 12/25/2019 Left groin pain 01/19/2019 04/27/2019 Assessment & Plan (01/19/2019 10:54 AM MANAGER TELEMARKETING): l groin and let pt play with [...] stable Assessment & Plan (01/19/2019 10:50 AM MANAGER TELEMARKETING): Stable and needs to drop wt. Assessment & Plan (10/27/2018 10:37 AM CDT): Work to drop some Assessment & Plan (03/18/2018 12:04 PM MANAGER TELEMARKETING): Being over weight is dealt with by [...] 02/03/2020 Assessment & Plan (01/06/2020 3:51 PM MANAGER TELEMARKETING): Marked improvement to baseline. And now bllodi urine and wbc suggested from renal source. Given a urine severe yrs ago that had this surggest long standing. Referral opton to renal for There opion. No nsalis no ppi's . Assessment & Plan (12/31/2019 3:45 PM MANAGER TELEMARKETING): Stopping meds and lisinopril vcictoza metformin . Labs Drawn cmp and cbc Type 1 diabetes mellitus wit h stage 3 chronic kidney disease 01/14/2017 01/14/2017 Mixed hyperlipidemia due to type 2 diabetes mellitus 01/14/2017 06/03/2017 Assessment & Plan (01/14/2017 11:52 AM MANAGER TELEMARKETING): ldl at 76 and gtreat. No changes. [...] 07/21/2021 Assessment & Plan (02/03/2020 10:20 AM MANAGER TELEMARKETING): Urine culture + and will retreat and [...] along with whole milk products And limited. Encounters Date Type Department Care Team Description 09/10/2024 Orders Only [facility] [address] [address] ProviderRichard MD 08/13/2024 8:44 AM CDT - 08/13/2024 11:59 PM CDT Hospital Encounter [facility] [address] [place] [address] [place] [phone] Discharge Disposition: Discharge to home or self care 08/13/2024 8:00 AM CDT Office Visit [facility] [address] [place] [address] [address] [place] [address] Emmie López PA Right hip pain (Primary Dx) 08/13/2024 7:34 AM CDT - 08/13/2024 11:59 PM CDT Hospital Encounter [facility] and Sports Medicine [address] [place] [address] [address] [place] [address] Discharge Disposition: Discharge to home or self care 07/27/2024 5:00 PM CDT Office Visit [facility] at [address] [address] Terri Velez, SWATHI Acute cough (Primary Dx) 07/08/2024 Telephone [facility] [address] [place] [address] [address] [place] [address] Ajay Molina MD from Last 3 Months Immunizations Immunization Administration Dates Next Due Influenza [...] 05/10/2014 Pneumococcal Polysaccharide PPV23 02/03/2020, Tdap 05/18/2016 Surgical History Surgery Date Site/Laterality Comments BUNIONECTOMY Right COLONOSCOPY 01/19/2014 CATARACT EXTRACTION 02/18/2013 - 02/17/2014 Bilateral LASIK 02/18/2013 - 02/17/2014 COSMETIC SURGERY 02/19/2020 - 02/17/2021 eyelid surgery x 3 Medical History Medical History Date Comments Hx Other Medical 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 Hx Other Medical -Nursing Technician Hx Other Medical -Opthamologis t Hx Other Medical -Dermatologis t Hx Other Medical 2001 bunionectomy Hx Other Medical 01/19/2010 eyelid surgery; Comments: bilateral eyelid lift, R eye lower eyelid; Laterality: bilateral Hx Other Medical 2013 eye surgery ill [facility] Hyperlipidemia Hypertension Diabetes mellitus (HCC) Colon polyp Type 2 diabetes mellitus Arthritis 2019 Chronic kidney disease 11/2019 Family History Medical History Relation Name Comments Dementia Brother 2 Prince Velasco Dementia; Diabetes Brother 2 Prince Velasco Hearing loss Brother 2 Prince Velasco Alzheimer's disease Brother 3 Rod Memory loss Brother 3 Rod Depression Father Depression; Diabetes Father Diabetes mellit us; Heart disease Father Hypertension Father Hypertension; Stroke Father Stroke; Cancer Mother Colon cancer Mother Other Mother Cancer -colon & leukemia; Colon cancer Mother's Brother Colon cancer Mother's Sister Relation Name Status Comments Brother 1 Alive Brother 2 Prince Velasco Brother 3 Rod Father Mother Mother's Brother Mother's Sister Social History Tobacco Use Types Packs/Day Years [...] often do you attend chur ch or worship services? Never 07/04/2022 Do you belong to any clubs o r organizations such as presybeterian groups, unions, fraternal or athletic groups, or [...] place to sleep or slept in a correction (including now)? No 07/04/2022 Personal Safety Answer Date Recorded Have you ever been in or are you currently in a harmful physical or emotional relationship or is someone making you feel afraid or unsafe? Denies 07/02/2022 Comments No Sex and Gender Information Value Date Recorded Sex Assigned at Not on file Legal Sex Female 11:51 PM MANAGER TELEMARKETING Gender Identity Female 04/19/2019 1:05 PM MANAGER TELEMARKETING Sexual Orientation Straight 04/19/2019 1: 05 PM MANAGER TELEMARKETING Obstetrics History Para Term AB IAB SAB Ectopic Multiple Livin g Live Births 0 0 0 0 0 0 0 0 0 0 0 Last Filed Vital Signs Vital Sign Reading [...] 08/13/2024 8:14 AM CDT Plan of Treatment Health Maintenance Due Date Last Done Comments Hepatitis B Screening 1960 Zoster Vaccine (1 of 2) 1992 Foot Exam 04/17/2022 04/17/2021, 04/18, 02/03/2020, Additional history exists Well Visit 65+ 04/17/2022 04/17/2021, 01/18, 10/27/2018, Additional history exists Breast Cancer Screening-Mammogram 09/01/2022 09/01/2021, 07/25/2020, 07/28/2018, Additional history exists Covid-19 Vaccine (2023-2 5 season) 2023 01/01/2023, 12/26/2020, 05/03/2020, Additional history exists Influenza Vaccine (#1) 2024 , 12/13/2020, 12/13/2020, Additional history exists Osteoporosis Screening-Bone Density Scan 11/09/2024 11/09/2022, 01/18/2020, 12/30/2007, Additional history exists Hemoglobin A1C 12/01/2024 06/01/2024, 10/2023, 05/23/2023, Additional history exists Lipid Panel 06/01/2025 06/01/2024, 10/2023, 05/23/2023, Additional history exists eGFR 06/01/2025 06/01/2024, 10/2023, 05/23/2023, Additional history exists Depression Screening 06/09/2025 06/09/2024, 12/03/2023, 05/28/2023, Additional history exists Fall Risk Assessment 06/09/2025 06/09/2024, 12/03/2023, 05/28/2023, Additional history exists DTaP/Tdap/Td Vaccine (2 - Td or Tdap) 05/18/2026 05/18/2016 Dilated Eye Exam 09/03/2026 09/03/2024, 04/2024, 04/24/2023, Additional history exists Pneumococcal vaccine 65+ Completed 020, 05/10/2014, 01/06/2008 Albumin Creatinine Ratio, Urine Discontinued 06/01/2024, 11/27/2023, 05/21/2023, Additional history exists Medical Devices Implanted Type Area Mortar Maker Device Identifier Shelf Expiration Date Model / Serial / Lot [employer] [place] 52mm Sector Hip Shell Acetabular Gription Sterile Latex Free [id number] - [id number] Implanted:Qty: 1 on 07/02/2022 by Tonya Patel MD at [facility] Left: Hip [employer] 05/18/2032 [id number] / / [id number] [employer] [place] 52mm 36mm Hip Neutral Liner Acetabular Altrx Sterile Latex Free [id number] - [id number] Implanted:Qty: 1 on 07/02/2022 by Tonya Patel MD at [facility] Left: Hip [employer] 04/18/2027 [id number] / / [id number] [employer] [place] 6.5mm 35mm Acetabular Cancellous Screw Bone Sterile 1217-35-500 - [id number] Implanted:Qty: 1 on 07/02/2022 by Tonya Patel MD at [facility] Left: Hip [employer] 02/18/2032 1217-35-500 / / [id number] [employer] Actis Collar Hip 4 High Offset Stem Femoral [id number] - [id number] Implanted:Qty: 1 on 07/02/2022 by Tonya Patel MD at [facility] Left: Hip [employer] 09/18/2031 [id number] / / [id number] [employer] Articul/Kt 36mm Cementless Hip +5mm 01/31 Taper Head Femoral Latex Free [id number] - [id number] Implanted:Qty: 1 on 07/02/2022 by Tonya Patel MD at [facility] Left: Hip [employer] 05/19/2027 [id number] / / [id number] Procedures Procedure Name Priority Date/Time Associated Diagnosis [...] formation, and diminished disc and foraminal space. Emmie GALVEZ IMG XR PROCEDURES Fin [...] LAB URINE ORDERABLES Babs l Result [facility] [address] [place] [address] * (ABNORMAL) Hemoglobin A1c (06/01/2024 11:25 AM [...] FASTING:YES FASTING: YES Paul Chavez MD LAB BLOOD ORDERABLES Babs macho Result TE AdanRajesh Nielsen [address] [place] [address] * (ABNORMAL) Lipid panel (06/01/2024 11:25 AM CDT) [facility] Signature Cholesterol 147 <200 mg/dL Adan-S basilio Nielsen HDL 34(L) > OR = 50 mg/dL Adan-S basilio Nielsen Triglycerides 213(H) <150 mg/dL Adan-S t Morales Comment: If a non-fasting specimen was collected, consider repeat triglyceride testing on a fasting specimen if clinically indicated. Kingston et al. J. of Clin. Lipidol. 2015;9:129-169. LDL 82 mg/dL (calc) Te Vivakor-Spike Nielsen Comment: Reference range: <100 Desirable range <100 mg/dL for primary prevention; <70 mg/dL for patients with CHD or diabetic patients with > or = 2 CHD risk factors. LDL-C is now calculated using the Fabio-Maria Fernanda calculation, which is a validated novel method providing better accuracy than the Friedewald equation in the estimation of LDL-C. Fabio SS et al. SHARRI. 2013;310(19): 2212-5679 (http://education.LCO Creation/faq/KHE583) Chol/HDL ratio 4.3 <5.0 (calc) Te Vivakor-Spike richmond Morales Non-HDL, (LDL+VLDL) 113 <130 mg/dL (calc) Te Vivakor-S basilio Nielsen Comment: For patients with diabetes plus 1 major ASCVD risk factor, treating to a non-HDL-C goal of <100 mg/dL (LDL-C of <70 mg/dL) is considered a therapeutic option. 06/01/2024 11:2 5 AM CDT 06/01/2024 11:27 AM CDT Narrative [facility] - 06/02/2024 7:17 AM CDT FASTING:YES FASTING: YES Paul Chavez MD LAB BLOOD ORDERABLES Babs l [facility] [address] [place] [address] * (ABNORMAL) Comprehensive metabolic panel (06/01/2024 11:25 AM CDT) Glucose 135(H) 65 - 99 mg/dL Te CadigoSpike Nielsen Comment: Fasting reference interval For someone without known diabetes, a glucose value >125 mg/dL indicates that they may have diabetes and this should be confirmed with a follow-up test. BUN 52(H) 7 - 25 mg/dL Te CadigoSpike Nielsen Creatinine 2.53(H) 0.60 - 0.95 mg/dL Adan-S basilio Nielsen eGFR 19(L) > OR = 60 mL/min/1.7 3m2 K1 SpeedSpike Nielsen BUN/creat ratio 21 6 - 22 (calc) Te Vivakor-S basilio Nielsen Sodium 137 135 - 146 mmol/L K1 SpeedS basilio Nielsen Potassium, pl 4.9 3.5 - 5.3 mmol/L K1 SpeedS basilio Nielsen Chloride 103 98 - 110 mmol/L K1 SpeedS basilio Nielsen CO2 24 20 - 32 mmol/L Adan-S basilio Nielsen Calcium 9.6 8.6 - 10.4 mg/dL Adan-S basilio Nielsen Protein, sr 6.8 6.1 - 8.1 g/dL Te Vivakor-S basilio Nielsen Albumin 4.1 3.6 - 5.1 g/dL Te Vivakor-S basilio Nielsen GLOBULIN 2.7 1.9 - 3.7 g/dL (calc) Adan-S basilio Nielsen Alb/glob ratio 1.5 1.0 - 2.5 (calc) Adan-S basilio Nielsen Bilirubin, total 0.5 0.2 - 1.2 mg/dL Adan-S basilio Nielsen Alk phos 73 37 - 153 U/L Adan-S basilio Nielsen AST 23 10 - 35 U/L K1 SpeedSpike Nielsen ALT (SGPT) 21 6 - 29 U/L K1 SpeedSpike Nielsen 06/01/2024 11:2 5 AM CDT 06/01/2024 11:27 AM CDT Narrative [facility] - 06/02/2024 7:17 AM CDT FASTING:YES FASTING: YES us Paul Chavez MD LAB BLOOD ORDERABLES Babs macho Result [facility] [address] [place] [address] * Dexa Axial Skeleton Bone Density 1 [...] left hip replacement about 4 months ago Mortar Maker/Model: News360 SL (S/N [id number]) CLINICAL INFORMATION: Current height: 67 inches Maximum [...] Herbert Boyd M.D. MF: AASHISH Report ID: [id number] Reading Location: [place] [address] Procedure Note Herbert Boyd MD - 11/10/2022 EXAM DESCRIPTION: DEXA AXIAL SKELETON BONE DENSITY 1 OR MORE SITES REASON FOR STUDY: 81 y/o year old F with given history of:Asymptomatic menopausal state Screening Hx of left hip replacement about 4 months ago Mortar Maker/Model: News360 SL ([id number]/N [id number]) CLINICAL INFORMATION: Current height: 67 inches Maximum [...] Herbert Boyd M.D. MF: AASHISH Report ID: [id number] Reading Location: [id number] Paul Chavez MD IMG DXA PROCEDURES Final Result * Screening Mammogram [...] (05/18/2016) Diabetic Foot Exam Unknown Historical Provider HEALTH MAINTENANCE Final Result from Last 3 Months or Most Recently Relevant to Health Maintenance Insurance MEDICARE [facility] MEDICARE MEDICARE MEDICARE [facility] MEDICARE [employer] MEDICARE SUPPLEMENT MEDICARE [facility] Advance Directives For more information, please contact: [phone] * Full Code (Latest Code Status on File) Date Activated Date Inactivated Comments 07/02/2022 12:15 PM 07/04/2022 6:41 PM * Full Code Date Activated Date Inactivated Comments 01/23/2019 9:40 AM 01/23/2019 4:32 PM * Full Code Date Activated Date Inactivated Comments 01/23/2019 9:40 AM 01/23/2019 9:40 AM Care Teams Supervisor Microfilm Duplicating Unit Relationship Specialty Start Date End Date Paul Chavez MD [address] [place] [address] PCP - General Family Medicine 08/09/21 Herbert Parker MD [address] [place] [address] Referring Physician Ophthalmology 04/17/21 Artie Nayak MD [address] [facility] [address] [place] [address] Consulting Physician Obstetrics and Gynecology 04/17/21 Mary Ann Santizo MD [address] [place] [address] Referring Physician Dermatology 04/17/21 Laura Crump MD [address] [facility] [address], [place] [address] Consulting Physician Interventional Cardiology 04/17/21 Tonya Patel MD [address] [place] [address] [address] [place] [address] Surgeon Orthopedic Surgery 07/03/22
--- OUTSIDE RECORDS SUMMARY | 2024-09-19 20:47 | XMS_ITS | Clinical Summary ---
Author Organization [facility] Facility Address [address] [place] [id number] Care Team Providers Care Cherry Picker Operator Name Role Phone Gordonnae Param Primary Care Provider Unavailabl e Allergies No known active allergies Medications aspirin (Norberto Aspirin EC Low Dose) 81 MG EC tablet Take 1 tablet by mouth 1 (one) time each day 0 Active atorvastatin (LIPITOR) 20 MG tablet Take 10 mg by mouth at bed time Active Cholecalciferol 50 MCG (1999 UT) capsule Take 1 capsule by mouth 1 (one) time each day 1 Active ferrous sulfate 325 (65 Fe) MG tablet Take 1 tablet by mouth 1 (one) time each day SATURDAY THROUGH SATURDAY Active liraglutide (Victoza) 18 MG/3ML injection Inject 1.8 mg under the skin 1 (one) time each day 0 Active pioglitazone (Actos) 45 MG tablet Take 1 tablet by mouth 1 (one) time each day Active omega-3 (FISH OIL) 1000 MG capsule Take 300 mg by mouth 1 (one) time each day Active Multiple Vitamin (multivitamin) tablet Take 1 tablet by mouth 1 (one) time each day Active fluticasone (VERAMYST) 27.5 MCG/SPRAY nasal spray Administer 1 spray into each nostril if needed for rhinitis Active cyanocobalamin (VITAMIN B-12) 1000 MCG tablet Take 1,000 mcg by mouth 1 (one) time each day Active furosemide (Lasix) 20 MG tablet Take 1 tablet (20 mg total) by mouth 2 (two) times a day 60 tablet 3 1 Active Active Problems Problem Noted Date Diagnosed Date Benign essential hypertension 08/31/2020 Chronic kidney disease stage 4 08/31/2020 Hyperkalemia 08/31/2020 Vitamin D deficiency 08/31/2020 Obesity 05/04/2020 Overview (08/31/2020): Last Assessment & Plan: Work to keep wt stable to drop Generalized edema 02/03/2020 Overview (08/31/2020): Last Assessment & Plan: suporot hose on dfirst in am. Consider referal to edema clinic on return Hypercalcemia 12/31/2019 Overview (08/31/2020): Last Assessment & Plan: Resolved and montior Orthostatic hypotension 12/31/2019 Overview (08/31/2020): Last Assessment & Plan: Not on much meds but stopoing the lisinopri and off h ctzx already Pushing salts and flulids in general stopoing merformin and victoza and simbvastatin Dyspnea on exertion 01/20/2018 Overview (08/31/2020): Last Assessment & Plan: Patient underwent stress exercise echo that was unremarkable but was sub maximal. I asked the patient to use her treadmill at home and gradually exercise. Asked patient to let me know if she experiences any chest pain. Cobalamin deficiency 11/19/2017 Overview (08/31/2020): Last Assessment & Plan: b12 excess and will stop b12 for now and recheck on reutrn and see violette at and come backwith actual dose taking to help adjust dose knowing what she takes Type 2 diabetes mellitus 10/07/2017 Overview (08/31/2020): Last Assessment & Plan: ldl at 96 [...] with whole milk products And limited. Acute back pain with sciatica 01/14/2017 Overview (08/31/2020): Last Assessment & Plan: Some what better but stil issue referal to pt given apparent muslce c.o and worked in past if not then refereral to pain md. Not andidate for stgeroid given high surg/d.,. and nsaid's risk more then worth. 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 Would like to ait for sensitivityi to come back Immunizations Immunization Administration Dates Next Due Influenza Split 01/15/2011,12/26/2009 Influenza Split High Dose Pr eservative Free IM 01/06/2020,01/19/2019,11/21/2017,11/20,03/14/2015,01/04/2014,01/12/2013 Influenza TIV (IM) 02/26/2012,01/06/2008 Pfizer SARS-COV-2 05/03/2020,04/12/2020 Pneumococcal Conjugate 13-Valent 05/10/2014 Pneumococcal Polysaccharide 02/03/2020, 8 Tdap 05/18/2016 Family History Medical History Relation Comments Hypertension Father Stroke Father Cancer Mother Diabetes Sibling 1 Dementia Sibling 2 Relation Status Comments Father Mother Sibling 1 Sibling 2 Social History Tobacco Use Types Packs/Day Years Used Date Smoking Tobacco: Every Day Alcohol Use Standard Drinks/Week Comments Yes 0 (1 standard drink = 0.6 oz pure alcohol) Alcoholic Drinks/day: Occasional social drink Comments Unknown Sex and Gender Information Value Date Recorded Sex Assigned at Female 12/18/2020 10:09 AM EDT Legal Sex Female 2:52 PM EDT Gender Identity Female 12/18/2020 10:09 AM EDT Sexual Orientation Straight 12/18/2020 10 :09 AM EDT Last Filed Vital Signs Vital Sign Reading Time Taken Comments Blood Pressure 148/56 12/20/2020 2:36 PM CDT Pulse 88 12/20/2020 2:36 PM CDT Temperature 36.2 C (97.1 F) 12/20/2020 2:36 PM CDT Respiratory Rate 16 10/25/2020 2:48 PM CDT Oxygen Saturation 97% 12/20/2020 2:36 PM CDT Inhaled Oxygen Concentration - - Weight 107 kg (236 lb) 12/20/2020 2:36 PM CDT Height 170.2 cm (5' 7) 12/20/2020 2:36 PM CDT Body Mass Index 36.96 12/20/2020 2:36 PM CDT Plan of Treatment Health Maintenance Due Date Last Done Comments Diabetes: Ophthalmology Exam 07/14/2020 Diabetes: Pedal Pulse Checked 07/14/2020 Diabetes: Sensory Foot Exam 07/14/2020 Diabetes: Visual Foot Exam 07/14/2020 Diabetes: Hemoglobin A1C 01/31/202111/01/ 021, 10/20/2020, 07/22/2020, Additional history exists Influenza Vaccine (#1) 2024 , 01/06/2020, 01/19/2019, Additional history exists Pneumococcal Vaccine: 50+ Years Completed 02/03/2020, 05/10/2014, 01/06/2008 Hepatitis B Vaccine Aged Out No longe r eligible based on patient's age to complete this topic Procedures Procedure Name Priority Date/Time Associated Diagnosis Comments HEMOGLOBIN A1C Routine 10/20/2020 9:17 AM CDT from Last 3 Months or Most Recently Relevant to Health Maintenance Results * (ABNORMAL) Hemoglobin A1c (10/20/2020 9:17 AM CDT) Hemoglobin A1C 8.8(H) <5.7 % of total Hgb [facility] 10/20/2020 9:17 AM CDT 10/20/2020 9:21 AM CDT Narrative [facility] - 10/21/2020 9:41 AM CDT FASTING:NO PATIENT UNABLE TO VOID; ADVISED TO RETURN FOR COLLECTION. FASTING: NO Resulting Agency Comment Performing Organization Information: Site ID: Name: [facility] Address: [address] [place] [id number] Director: Hermila [place] Faith Weinberg MD LAB BLOOD ORDERABLES Final R esult [facility] from Last 3 Months or Most Recently Relevant to Health Maintenance Insurance Medicare [facility] Care Teams Cherry Picker Operator Relationship Specialty Start Date End Date Param Leonard PCP - General Internal Medicine 08/31/20
[2024-09-19 21:25] VITALS: BP 142/81; PULSE 76; RESP 17; O2SAT 99
[2024-09-19 21:26] VITALS: BP 142/81; PULSE 76; RESP 17; O2SAT 99
== END 2024-09-19 21:28 | disposition home or self-care (01) ==
LOC: ANHED 20:45
PROVIDERS: Emergency Provider Emergency Medicine; PCP Family Medicine
DX: S42.291A Other displaced fracture of upper end of right humerus, initial encounter for closed fracture (principal); E11.9 Type 2 diabetes mellitus without complications; M19.90 Unspecified osteoarthritis, unspecified site; Z79.85 Long-term (current) use of injectable non-insulin antidiabetic drugs; Z79.899 Other long term (current) drug therapy; Z87.891 Personal history of nicotine dependence; W10.9XXA Fall (on) (from) unspecified stairs and steps, initial encounter
CPT/HCPCS: 73020; 73030; 99284; A4565